=== PATIENT | female | born 1970 | race Caucasian/White ===

== ENCOUNTER 2018-09-22 14:16 | Emergency (ER) | payer OTHER ==
[2018-09-22] MEDS ORDERED: SODIUM CHLORIDE 0.9% 1,000 ML IV STA (14:36)
[2018-09-22] MEDS ORDERED: IPRATROPIUM-ALBUTEROL 3 ML NEB INHALATION STA (14:38)
[2018-09-22] MEDS ORDERED: ACETAMINOPHEN TAB 500 MG TAB PO STA (14:38)
--- NOTE | 2018-09-22 14:46 | ED ---
General Adult HPI - General Chief complaint: Upper Respiratory Infection Stated complaint: JIHAN,dizzy Time Seen by Provider: 09/22/18 14:27 Source: patient, RN notes reviewed, old records reviewed Mode of arrival: wheelchair Limitations: no limitations - History of Present Illness Initial comments: 47 old female patient with past medical history of asthma presents to ED with approximately 5 days of dry cough, general feeling of malaise. Patient reports that her family is sick with similar symptoms. Patient states that she has tried Mucinex at home with little improvement. Patient states that she has had some fevers and chills. Patient states that she has had some shortness of breath when coughing. Patient denies chest pain. Patient denies pleuritic chest pain. Patient denies abdominal pain. Patient denies other complaints. Systemic: Pt denies fatigue, myalgia, rash. Pt denies weakness, night sweats, weight loss. Neuro: Pt denies headache, visual disturbances, syncope or pre-syncope. HEENT: Pt denies ocular discharge or irritation, otalgia, rhinorrhea, pharyngitis or notable lymphadenopathy. Cardiopulmonary: Pt denies chest pain, heart palpitations, dyspnea on exertion. Abdominal/GI: Pt denies abdominal pain, n/v/d. : Pt denies dysuria, burning w/ urination, frequency/urgency. Denies new onset urinary or bowel incontinence. MSK: Pt denies myalgia, loss of strength or function in extremities. Neuro: Pt denies new onset weakness, paresthesias. - Related Data Previous Rx's Medication Instructions Recorded Acetaminophen Tab [Tylenol] 1,000 mg PO TID 5 Days tablet 09/22/18 Albuterol Inhaler [Ventolin Hfa 1 - 2 puff INHALATION Q4-6H PRN #1 09/22/18 Inhaler] inhaler Albuterol Nebulized [Ventolin 2.5 mg INHALATION Q4H PRN 10 Days 09/22/18 Nebulized] nebu Amoxicillin/Potassium Clav 1 each PO Q12HR #20 tab 09/22/18 [Augmentin 875-125 Tablet] Ibuprofen [Motrin] 600 mg PO Q6HR PRN #40 day 09/22/18 Allergies Allergy/AdvReac Type Severity Reaction Status Date / Time codeine Allergy Unknown Verified 09/22/18 14:25 tioconazole Allergy Unknown Verified 09/22/18 14:25 [From Monistat 1 (tioconazole)] Review of Systems ROS Statement: Those systems with pertinent positive or pertinent negative responses have been documented in the HPI. ROS Other: All systems not noted in ROS Statement are negative. Past Medical History Past Medical History: No Reported History History of Any Multi-Drug Resistant Organisms: None Reported Past Surgical History: Ablation, Tubal Ligation Past Psychological History: Anxiety Smoking Status: Current every day smoker Past Alcohol Use History: Rare Past Drug Use History: Marijuana General Exam - General Exam Comments Initial Comments: Constitutional: NAD, AOX3, Pt has pleasant affect. HEENT: NC/AT, trachea midline, neck supple, no lymphadenopathy. Posterior pharynx non erythematous, without exudates. External ears appear normal, without discharge. Mucous membranes moist. Eyes PERRLA, EOM intact. There is no scleral icterus. No pallor noted. Cardiopulmonary: RRR, no murmurs, rubs or gallops, no JVD noted. Wheezing noted in anterior and posterior ramsya. Wheezing resolved after breathing treatment. No peripheral edema. Abdominal exam: Abdomen soft and non-distended. Abdomen non-tender to palpation in all 4 quadrants. Bowel sounds active in LLQ. No hepatosplenomegaly. No ecchymosis Neuro: CN II-XII grossly intact. No nuchal rigidity. MSK: No posterior calf tenderness bilaterally, homans sign negative bilaterally. Posterior tibialis and radial pulse +2 bilaterally. Sensation intact in upper and lower extremities. Full active ROM in upper and lower extremities, 5/5 stregnth. Limitations: no limitations Course Vital Signs 09/22/18 09/22/18 09/22/18 14:21 15:02 15:13 Temperature 99.9 F H Pulse Rate 114 H 104 H 96 Respiratory 20 Rate Blood Pressure 126/31 O2 Sat by Pulse 95 Oximetry Medical Decision Making - Medical Decision Making 47 old female patient with past medical history of asthma presents to ED with approximately 5 days of dry cough, general feeling of malaise. Patient reports that her family is sick with similar symptoms. Patient states that she has tried Mucinex at home with little improvement. Patient states that she has had some fevers and chills. Patient states that she has had some shortness of breath when coughing. Patient denies chest pain. Patient denies pleuritic chest pain. Patient denies abdominal pain. Patient denies other complaints. Pt vss displayed mild tachycardia and mild fever of 99.9F. tachycardia resolved with fluid administration and antipyretic. Physical exam displayed mild wheezing in anterior and posterior lung ramsay, wheezing resolved after breathing treatment. No other acute pathology noted on physical exam. Laboratory investigations revealed mild cytosis of 10.7. D-dimer is negative. CMP revealed mild hyponatremia of 136. AST/ALT mildly elevated at 56 and 55. Troponin was negative. EKG displayed sinus tachycardia. Chest x-ray revealed right suprahilar area of consolidation. Patient to follow up for repeat films after pneumonia treatment to ensure no other pathology. Patient administered 1 g acetaminophen, 1 g ceftriaxone, 1 L normal saline in ED. Patient to be discharged with outpatient antibiotic Augmentin. Patient is on medications also refilled. Patient prescribed,/Motrin, to use to control fever as needed. Patient new to area, does not have PCP. Patient referred to [facility]. Stressed importance of follow-up, patient was understanding. Patient to have low threshold for return to ED. Patient was understanding. Patient to return to ED if new signs or symptoms develop or if condition worsens in any way. Case discussed in depth with Dr. Underwood. - Lab Data Result diagrams: 09/22/18 14:45 09/22/18 14:45 Lab Results 09/22/18 09/22/18 09/22/18 Range/Units 14:45 14:45 14:45 WBC 10.7 H (3.8-10.6) k/uL RBC 5.07 (3.80-5.40) m/uL Hgb 15.3 (11.4-16.0) gm/dL Hct 46.5 H (34.0-46.0) % MCV 91.8 (80.0-100.0) fL MCH 30.3 (25.0-35.0) pg MCHC 33.0 (31.0-37.0) g/dL RDW 13.1 (11.5-15.5) % Plt Count 172 (150-450) k/uL Neutrophils % 80 % Lymphocytes % 12 % Monocytes % 5 % Eosinophils % 1 % Basophils % 1 % Neutrophils # 8.6 H (1.3-7.7) k/uL Lymphocytes # 1.3 (1.0-4.8) k/uL Monocytes # 0.5 (0-1.0) k/uL Eosinophils # 0.1 (0-0.7) k/uL Basophils # 0.1 (0-0.2) k/uL D-Dimer (<0.60) mg/L FEU Sodium 136 L (137-145) mmol/L Potassium 3.8 (3.5-5.1) mmol/L Chloride 100 (98-107) mmol/L Carbon Dioxide 23 (22-30) mmol/L Anion Gap 13 mmol/L BUN 11 (7-17) mg/dL Creatinine 0.74 (0.52-1.04) mg/dL Est GFR (CKD-EPI)AfAm >90 (>60 ml/min/1.73 sqM) Est GFR (CKD-EPI)NonAf >90 (>60 ml/min/1.73 sqM) Glucose 114 H (74-99) mg/dL Plasma Lactic Acid Ric 1.5 (0.7-2.0) mmol/L Calcium 9.1 (8.4-10.2) mg/dL Total Bilirubin 0.5 (0.2-1.3) mg/dL AST 56 H (14-36) U/L ALT 55 H (9-52) U/L Alkaline Phosphatase 114 (38-126) U/L Troponin I (0.000-0.034) ng/mL Total Protein 7.6 (6.3-8.2) g/dL Albumin 4.5 (3.5-5.0) g/dL Amylase 39 (30-110) U/L Lipase 70 (23-300) U/L 09/22/18 09/22/18 Range/Units 14:45 14:45 WBC (3.8-10.6) k/uL RBC (3.80-5.40) m/uL Hgb (11.4-16.0) gm/dL Hct (34.0-46.0) % MCV (80.0-100.0) fL MCH (25.0-35.0) pg MCHC (31.0-37.0) g/dL RDW (11.5-15.5) % Plt Count (150-450) k/uL Neutrophils % % Lymphocytes % % Monocytes % % Eosinophils % % Basophils % % Neutrophils # (1.3-7.7) k/uL Lymphocytes # (1.0-4.8) k/uL Monocytes # (0-1.0) k/uL Eosinophils # (0-0.7) k/uL Basophils # (0-0.2) k/uL D-Dimer 0.44 (<0.60) mg/L FEU Sodium (137-145) mmol/L Potassium (3.5-5.1) mmol/L Chloride (98-107) mmol/L Carbon Dioxide (22-30) mmol/L Anion Gap mmol/L BUN (7-17) mg/dL Creatinine (0.52-1.04) mg/dL Est GFR (CKD-EPI)AfAm (>60 ml/min/1.73 sqM) Est GFR (CKD-EPI)NonAf (>60 ml/min/1.73 sqM) Glucose (74-99) mg/dL Plasma Lactic Acid Ric (0.7-2.0) mmol/L Calcium (8.4-10.2) mg/dL Total Bilirubin (0.2-1.3) mg/dL AST (14-36) U/L ALT (9-52) U/L Alkaline Phosphatase (38-126) U/L Troponin I <0.012 (0.000-0.034) ng/mL Total Protein (6.3-8.2) g/dL Albumin (3.5-5.0) g/dL Amylase (30-110) U/L Lipase (23-300) U/L Disposition Clinical Impression: Community acquired pneumonia Disposition: HOME SELF-CARE Condition: Stable Instructions (If sedation given, give patient instructions): Asthma (ED), Community Acquired Pneumonia (ED) Additional Instructions: Patient to adhere to previously discussed treatment plan and will take medication(s) as directed. Patient to follow up with PCP in 1-2 days. Patient to return to ED if symptoms do not improve. Prescriptions: Acetaminophen Tab [Tylenol] 1,000 mg PO TID 5 Days tablet Albuterol Inhaler [Ventolin Hfa Inhaler] 1 - 2 puff INHALATION Q4-6H PRN #1 inhaler PRN Reason: Cough Albuterol Nebulized [Ventolin Nebulized] 2.5 mg INHALATION Q4H PRN 10 Days nebu PRN Reason: Cough Amoxicillin/Potassium Clav [Augmentin 875-125 Tablet] 1 each PO Q12HR #20 tab Ibuprofen [Motrin] 600 mg PO Q6HR PRN #40 day PRN Reason: Pain Is patient prescribed a controlled substance at d/c from ED?: No Referrals: None,Stated [Primary Care Provider] - 1-2 days [facility] [[facility] - 1-2 days Time of Disposition: 15:49
[2018-09-22 15:14] LABS: Basophils # (A) 0.1 k/uL (0-0.2); Basophils % (A) 1 %; Eosinophils # (A) 0.1 k/uL (0-0.7); Eosinophils % (A) 1 %; HCT 46.5 % (34.0-46.0); HGB 15.3 gm/dL (11.4-16.0); Lymphocytes # (A) 1.3 k/uL (1.0-4.8); Lymphocytes % (A) 12 %; MCH 30.3 pg (25.0-35.0); MCV 91.8 fL (80.0-100.0); Monocytes # (A) 0.5 k/uL (0-1.0); Monocytes % (A) 5 %; Neutrophils # (A) 8.6 k/uL (1.3-7.7); Neutrophils % (A) 80 %; Platelet Count 172 k/uL (150-450); RBC 5.07 m/uL (3.80-5.40); RDW 13.1 % (11.5-15.5); WBC 10.7 k/uL (3.8-10.6)
[2018-09-22 15:20] LABS: ALT 55 U/L (9-52); AST 56 U/L (14-36); Albumin 4.5 g/dL (3.5-5.0); Alkaline Phosphatase 114 U/L (38-126); Amylase 39 U/L (30-110); Anion Gap 13 mmol/L; Blood Urea Nitrogen 11 mg/dL (7-17); Calcium 9.1 mg/dL (8.4-10.2); Carbon Dioxide 23 mmol/L (22-30); Chloride 100 mmol/L (98-107); Glucose 114 mg/dL (74-99); Lipase 70 U/L (23-300); Potassium 3.8 mmol/L (3.5-5.1); Sodium 136 mmol/L (137-145); Total Bilirubin 0.5 mg/dL (0.2-1.3); Total Protein 7.6 g/dL (6.3-8.2)
--- NOTE | 2018-09-22 15:37 | XR ---
EXAMINATION TYPE: XR chest 2V DATE OF EXAM: 09/22/2018 COMPARISON: NONE TECHNIQUE: PA and lateral views submitted. HISTORY: Cough and congestion. FINDINGS: There is an irregular right suprahilar area of density within the right upper lobe. Left lung clear. No pneumothorax or pleural effusion. No overt failure. Heart size normal. Spine. IMPRESSION: 1. Right suprahilar area of somewhat irregular consolidation favor pneumonia over neoplasm. Follow-up to resolution recommended to exclude neoplasm.
[2018-09-22] MEDS ORDERED: IBUPROFEN 800 MG TAB PO STA (16:27)
[2018-09-22 16:28] VITALS: BP 109/71; PULSE 99; RESP 18
[2018-09-22 17:23] VITALS: TEMP 99.2
--- NOTE | 2018-09-22 18:46 | ED ---
Medical Decision Making - Lab Data Result diagrams: 09/22/18 14:45 09/22/18 14:45 Lab Results 09/22/18 09/22/18 09/22/18 Range/Units 14:45 14:45 14:45 WBC 10.7 H (3.8-10.6) k/uL RBC 5.07 (3.80-5.40) m/uL Hgb 15.3 (11.4-16.0) gm/dL Hct 46.5 H (34.0-46.0) % MCV 91.8 (80.0-100.0) fL MCH 30.3 (25.0-35.0) pg MCHC 33.0 (31.0-37.0) g/dL RDW 13.1 (11.5-15.5) % Plt Count 172 (150-450) k/uL Neutrophils % 80 % Lymphocytes % 12 % Monocytes % 5 % Eosinophils % 1 % Basophils % 1 % Neutrophils # 8.6 H (1.3-7.7) k/uL Lymphocytes # 1.3 (1.0-4.8) k/uL Monocytes # 0.5 (0-1.0) k/uL Eosinophils # 0.1 (0-0.7) k/uL Basophils # 0.1 (0-0.2) k/uL D-Dimer (<0.60) mg/L FEU Sodium 136 L (137-145) mmol/L Potassium 3.8 (3.5-5.1) mmol/L Chloride 100 (98-107) mmol/L Carbon Dioxide 23 (22-30) mmol/L Anion Gap 13 mmol/L BUN 11 (7-17) mg/dL Creatinine 0.74 (0.52-1.04) mg/dL Est GFR (CKD-EPI)AfAm >90 (>60 ml/min/1.73 sqM) Est GFR (CKD-EPI)NonAf >90 (>60 ml/min/1.73 sqM) Glucose 114 H (74-99) mg/dL Plasma Lactic Acid Ric 1.5 (0.7-2.0) mmol/L Calcium 9.1 (8.4-10.2) mg/dL Total Bilirubin 0.5 (0.2-1.3) mg/dL AST 56 H (14-36) U/L ALT 55 H (9-52) U/L Alkaline Phosphatase 114 (38-126) U/L Troponin I (0.000-0.034) ng/mL Total Protein 7.6 (6.3-8.2) g/dL Albumin 4.5 (3.5-5.0) g/dL Amylase 39 (30-110) U/L Lipase 70 (23-300) U/L 09/22/18 09/22/18 Range/Units 14:45 14:45 WBC (3.8-10.6) k/uL RBC (3.80-5.40) m/uL Hgb (11.4-16.0) gm/dL Hct (34.0-46.0) % MCV (80.0-100.0) fL MCH (25.0-35.0) pg MCHC (31.0-37.0) g/dL RDW (11.5-15.5) % Plt Count (150-450) k/uL Neutrophils % % Lymphocytes % % Monocytes % % Eosinophils % % Basophils % % Neutrophils # (1.3-7.7) k/uL Lymphocytes # (1.0-4.8) k/uL Monocytes # (0-1.0) k/uL Eosinophils # (0-0.7) k/uL Basophils # (0-0.2) k/uL D-Dimer 0.44 (<0.60) mg/L FEU Sodium (137-145) mmol/L Potassium (3.5-5.1) mmol/L Chloride (98-107) mmol/L Carbon Dioxide (22-30) mmol/L Anion Gap mmol/L BUN (7-17) mg/dL Creatinine (0.52-1.04) mg/dL Est GFR (CKD-EPI)AfAm (>60 ml/min/1.73 sqM) Est GFR (CKD-EPI)NonAf (>60 ml/min/1.73 sqM) Glucose (74-99) mg/dL Plasma Lactic Acid Ric (0.7-2.0) mmol/L Calcium (8.4-10.2) mg/dL Total Bilirubin (0.2-1.3) mg/dL AST (14-36) U/L ALT (9-52) U/L Alkaline Phosphatase (38-126) U/L Troponin I <0.012 (0.000-0.034) ng/mL Total Protein (6.3-8.2) g/dL Albumin (3.5-5.0) g/dL Amylase (30-110) U/L Lipase (23-300) U/L - EKG Data -: EKG Interpreted by Me (and Dr. Underwood ) EKG Comments: Ventricular rate 114, MI interval 1:30, QRS 80, QT/QTC 3:30 6465. Sinus tachycardia. No concern for acute ischemia. Disposition Clinical Impression: Community acquired pneumonia Disposition: HOME SELF-CARE Condition: Stable Instructions (If sedation given, give patient instructions): Asthma (ED), Community Acquired Pneumonia (ED) Additional Instructions: Patient to adhere to previously discussed treatment plan and will take medication(s) as directed. Patient to follow up with PCP in 1-2 days. Patient to return to ED if symptoms do not improve. Prescriptions: Acetaminophen Tab [Tylenol] 1,000 mg PO TID 5 Days tablet Albuterol Inhaler [Ventolin Hfa Inhaler] 1 - 2 puff INHALATION Q4-6H PRN #1 inhaler PRN Reason: Cough Albuterol Nebulized [Ventolin Nebulized] 2.5 mg INHALATION Q4H PRN 10 Days nebu PRN Reason: Cough Amoxicillin/Potassium Clav [Augmentin 875-125 Tablet] 1 each PO Q12HR #20 tab Ibuprofen [Motrin] 600 mg PO Q6HR PRN #40 day PRN Reason: Pain Is patient prescribed a controlled substance at d/c from ED?: No Referrals: None,Stated [Primary Care Provider] - [facility]2 days
== END 2018-09-22 17:25 | disposition home or self-care (01) ==
LOC: EC 14:16
DX: J18.9 Pneumonia, unspecified organism (principal); R00.0 Tachycardia, unspecified; E78.1 Pure hyperglyceridemia; R74.0 Nonspecific elevation of levels of transaminase and lactic acid dehydrogenase [LDH]; F17.200 Nicotine dependence, unspecified, uncomplicated; Z87.09 Personal history of other diseases of the respiratory system; Z88.5 Allergy status to narcotic agent; Z88.8 Allergy status to other drugs, medicaments and biological substances
CPT/HCPCS: 36415; 94640; 93005; 85379; 80053; 82150; 83605; 83690; 84484; 85025; 87040; 71046; 99285; 96365; 96361; J0696

== ENCOUNTER 2018-09-24 00:30 | Inpatient (IN) | payer OTHER ==
[2018-09-24] MEDS ORDERED: SODIUM CHLORIDE 0.9% 1,000 ML IV STA (00:51)
[2018-09-24] MEDS ORDERED: methylPREDNISolone SOD SUCCI 125 MG/2 ML VIAL IV STA (00:51)
[2018-09-24] MEDS ORDERED: ALBUTEROL NEBULIZED 2.5 MG/3 ML INHALATION STA (00:52)
[2018-09-24] MEDS ORDERED: IPRATROPIUM 0.5 MG/2.5 ML NEBU INHALATION STA (00:52)
--- NOTE | 2018-09-24 00:55 | ED ---
SOB HPI - General Chief Complaint: Shortness of Breath Stated Complaint: URI Time Seen by Provider: 09/24/18 00:40 Source: patient Mode of arrival: wheelchair Limitations: no limitations - History of Present Illness Initial Comments: 47-year-old female patient presents to the emergency department today for evaluation of shortness of breath and weakness. Patient states that she has been sick since Wednesday with upper respiratory symptoms including cough, wheezing, nasal congestion. Patient states she does have sore throat with this as well. Patient states she was seen and evaluated here in the emergency department yesterday was diagnosed with pneumonia and discharged home. Patient states she cannot afford her prescriptions and therefore was unable to start treatment. Patient states she feels her symptoms are worsening. States she has been very wheezy. States she gets very short of breath with and without activity. States she has had fever and chills. Has not taken her temperature. Patient denies any recent rash, abdominal pain, diarrhea, constipation, back pain, numbness, tingling, dizziness, hematuria, dysuria, urinary urgency, urinary frequency, headache, visual changes, or any other complaints. - Related Data Previous Rx's Medication Instructions Recorded Acetaminophen Tab [Tylenol] 1,000 mg PO TID 5 Days tablet 09/22/18 Albuterol Inhaler [Ventolin Hfa 1 - 2 puff INHALATION Q4-6H PRN #1 09/22/18 Inhaler] inhaler Albuterol Nebulized [Ventolin 2.5 mg INHALATION Q4H PRN 10 Days 09/22/18 Nebulized] nebu Amoxicillin/Potassium Clav 1 each PO Q12HR #20 tab 09/22/18 [Augmentin 875-125 Tablet] Ibuprofen [Motrin] 600 mg PO Q6HR PRN #40 day 09/22/18 Allergies Allergy/AdvReac Type Severity Reaction Status Date / Time codeine Allergy Unknown Verified 09/22/18 16:06 tioconazole Allergy Unknown Verified 09/22/18 16:06 [From Monistat 1 (tioconazole)] Review of Systems ROS Statement: Those systems with pertinent positive or pertinent negative responses have been documented in the HPI. ROS Other: All systems not noted in ROS Statement are negative. Past Medical History Past Medical History: No Reported History History of Any Multi-Drug Resistant Organisms: None Reported Past Surgical History: Ablation, Tubal Ligation Past Psychological History: Anxiety Smoking Status: Current every day smoker Past Alcohol Use History: Rare Past Drug Use History: Marijuana General Exam Limitations: no limitations General appearance: alert, in no apparent distress, other (This is a well- developed, well-nourished adult female patient in no acute distress. Vital signs upon presentation are temperature 98.9F, pulse 103, respirations 20, blood pressure 124/82, pulse ox 93% on room air.) Eye exam: Present: normal appearance, PERRL, EOMI. Absent: scleral icterus, conjunctival injection, periorbital swelling ENT exam: Present: mucous membranes moist, TM's normal bilaterally. Absent: normal exam, normal oropharynx (Pharyngeal erythema) Neck exam: Present: normal inspection. Absent: tenderness, meningismus, lymphadenopathy Respiratory exam: Present: wheezes (Mild expiratory wheezing to all posterior lung ramsay), accessory muscle use, other (Tachypnea). Absent: normal lung sounds bilaterally, respiratory distress, rales, rhonchi, stridor Cardiovascular Exam: Present: normal rhythm, tachycardia, normal heart sounds. Absent: systolic murmur, diastolic murmur, rubs, gallop, clicks GI/Abdominal exam: Present: soft, normal bowel sounds. Absent: distended, tenderness, guarding, rebound, rigid Neurological exam: Present: alert, oriented X3, CN II-XII intact Psychiatric exam: Present: normal affect, normal mood Skin exam: Present: warm, dry, intact, normal color. Absent: rash Course Vital Signs 09/24/18 09/24/18 09/24/18 00:34 01:25 01:48 Temperature 98.9 F Pulse Rate 103 H 102 H 112 H Respiratory 20 18 22 Rate Blood Pressure 124/82 120/84 O2 Sat by Pulse 93 L 93 L Oximetry Medical Decision Making - Medical Decision Making 47 year-old female patient presented to the emergency department today for complaints of shortness of breath and cough. Patient was diagnosed with pneumonia yesterday but was unable to fill her prescriptions she cannot afford them. Upon arrival patient is hypoxic at 93% on room air. She is obviously short of breath and tachypneic. She did have diffuse expiratory wheezing in the posterior lung ramsay. X-ray did show perihilar and lower lobe pneumonia. Given vital signs and x-ray findings we will admit to the hospital for IV antibiotics and symptom management. We'll also administer IV steroids and bronchodilators for possibility of COPD as patient is a smoker. - Lab Data Result diagrams: 09/24/18 01:10 09/24/18 01:10 Lab Results 09/24/18 09/24/18 09/24/18 Range/Units 01:10 01:10 01:10 WBC 10.4 (3.8-10.6) k/uL RBC 4.57 (3.80-5.40) m/uL Hgb 14.4 (11.4-16.0) gm/dL Hct 41.9 (34.0-46.0) % MCV 91.7 (80.0-100.0) fL MCH 31.5 (25.0-35.0) pg MCHC 34.4 (31.0-37.0) g/dL RDW 13.1 (11.5-15.5) % Plt Count 170 (150-450) k/uL Neutrophils % 73 % Lymphocytes % 19 % Monocytes % 5 % Eosinophils % 0 % Basophils % 1 % Neutrophils # 7.6 (1.3-7.7) k/uL Lymphocytes # 2.0 (1.0-4.8) k/uL Monocytes # 0.5 (0-1.0) k/uL Eosinophils # 0.0 (0-0.7) k/uL Basophils # 0.1 (0-0.2) k/uL Sodium 137 (137-145) mmol/L Potassium 4.1 (3.5-5.1) mmol/L Chloride 102 (98-107) mmol/L Carbon Dioxide 25 (22-30) mmol/L Anion Gap 10 mmol/L BUN 13 (7-17) mg/dL Creatinine 0.55 (0.52-1.04) mg/dL Est GFR (CKD-EPI)AfAm >90 (>60 ml/min/1.73 sqM) Est GFR (CKD-EPI)NonAf >90 (>60 ml/min/1.73 sqM) Glucose 107 H (74-99) mg/dL Plasma Lactic Acid Ric 1.1 (0.7-2.0) mmol/L Calcium 8.7 (8.4-10.2) mg/dL Total Bilirubin 0.8 (0.2-1.3) mg/dL AST 64 H (14-36) U/L ALT 43 (9-52) U/L Alkaline Phosphatase 78 (38-126) U/L Total Protein 7.6 (6.3-8.2) g/dL Albumin 4.1 (3.5-5.0) g/dL - EKG Data -: EKG Interpreted by Me EKG Comments: EKG obtained at 0103 shows sinus tachycardia with a ventricular rate of 104, IA interval 142, QRS duration 84, QT 348, QTC 457. No evidence of ST elevation or depression. - Radiology Data Radiology results: report reviewed, image reviewed Two-view x-ray of the chest is obtained. Report was reviewed in its entirety. Impression by Dr. Irving shows increased patchy perihilar and lower lung opacities may represent pulmonary edema versus infectious/inflammatory process. Disposition Clinical Impression: Pneumonia, Hypoxia Disposition: ADMITTED IP TO THIS [facility] Condition: Serious Decision to Admit Reason: Admit from EC Decision Date: 09/24/18 Decision Time: 02:52
[2018-09-24 01:46] LABS: Basophils # (A) 0.1 k/uL (0-0.2); Basophils % (A) 1 %; Eosinophils % (A) 0 %; HCT 41.9 % (34.0-46.0); HGB 14.4 gm/dL (11.4-16.0); Lymphocytes % (A) 19 %; MCH 31.5 pg (25.0-35.0); MCHC 34.4 g/dL (31.0-37.0); MCV 91.7 fL (80.0-100.0); Mean Platelet Volume 8.9; Monocytes # (A) 0.5 k/uL (0-1.0); Monocytes % (A) 5 %; Neutrophils # (A) 7.6 k/uL (1.3-7.7); Neutrophils % (A) 73 %; Platelet Count 170 k/uL (150-450); RBC 4.57 m/uL (3.80-5.40); RDW 13.1 % (11.5-15.5); WBC 10.4 k/uL (3.8-10.6)
[2018-09-24 02:16] LABS: Anion Gap 10 mmol/L; Blood Urea Nitrogen 13 mg/dL (7-17); Calcium 8.7 mg/dL (8.4-10.2); Carbon Dioxide 25 mmol/L (22-30); Chloride 102 mmol/L (98-107); Glucose 107 mg/dL (74-99); Sodium 137 mmol/L (137-145)
--- NOTE | 2018-09-24 02:20 | XR ---
EXAM: XR Chest, 2 Views CLINICAL HISTORY: ITS.REASON XR Reason: difficulty breathing TECHNIQUE: Frontal and lateral views of the chest. COMPARISON: Chest radiograph on 09/22/2018 FINDINGS: Hardware: None. Lungs/pleura: Patchy perihilar and lower lobe opacities. No pleural effusion or pneumothorax. Heart/mediastinum: Normal. No cardiomegaly. Soft tissues: Unremarkable. Bones: No acute fracture. Degenerative changes of the acromioclavicular joints and spine. Upper abdomen: Normal. IMPRESSION: Increased patchy perihilar and lower lung opacities may represent pulmonary edema versus infectious/inflammatory process.
[2018-09-24] MEDS ORDERED: KETOROLAC 30 MG/ML 1 ML VIAL IVP STA (02:33)
[2018-09-24 02:38] LABS: ALT 43 U/L (9-52); AST 64 U/L (14-36); Albumin 4.1 g/dL (3.5-5.0); Potassium 4.1 mmol/L (3.5-5.1); Total Bilirubin 0.8 mg/dL (0.2-1.3); Total Protein 7.6 g/dL (6.3-8.2)
[2018-09-24 02:39] LABS: Alkaline Phosphatase 78 U/L (38-126)
[2018-09-24] MEDS ORDERED: PNEUMONIA PROTOCOL UTILIZED 1 EACH MISC PO PRN (02:49)
[2018-09-24] MEDS ORDERED: AZITHROMYCIN 500 MG in SODIUM CHLORIDE 0.9% 250 ML IVPB STA (02:49)
[2018-09-24] MEDS ORDERED: IPRATROPIUM-ALBUTEROL 3 ML NEB INHALATION PRN (02:49)
[2018-09-24] MEDS ORDERED: AZITHROMYCIN 500 MG in SODIUM CHLORIDE 0.9% 250 ML IVPB ONE (05:00)
[2018-09-24] MEDS: KETOROLAC 30 MG/ML 1 ML VIAL IVP PRN ×2 (06:16→10:21)
[2018-09-24] MEDS: methylPREDNISolone SOD SUCCI 125 MG/2 ML VIAL IV SCH ×2 (06:20→12:06)
[2018-09-24] MEDS: IPRATROPIUM-ALBUTEROL 3 ML NEB INHALATION SCH ×4 (08:10→21:04)
[2018-09-24] MEDS ORDERED: ACETAMINOPHEN TAB 325 MG TAB PO PRN (15:06)
--- NOTE | 2018-09-24 15:59 | P.HPIM ---
History of Present Illness Chief Complaint: Shortness of breath This is a 47-year-old female who comes into the ER for shortness of breath and weakness. Patient says that she's been weak and sick for the past 4 days with cough wheezing shortness of breath and nasal congestion. She came into the ER the day before the present admission and she was diagnosed with pneumonia she was discharged home on antibiotics but she could not afford and so she did not refill the medications. He said that she's been trying to control the fever with Tylenol and Motrin but she was getting worse and worse so she came into the ER for further urology management. She says that she was having worsening shortness of breath and worsening cough. She continued to have fevers and chills. She otherwise does not complain of any chest pain or racing heart, no abdominal pain, nausea and vomiting, or diarrhea constipation, no tingling numbness of any of the extremities, no itch no rash. ER course-water show temperature 98.9 pulse 103 respiration 20 blood pressure satting 93%. Labwork was done which showed WBC 10.4 hemoglobin 14.4 platelets 170 sodium 137 potassium 4.1 BU and 13 creatinine 0.55 GFR more than 90 glucose 107 lactic acid is 1.1 [address] showed no [address]-T wave changes. Chest x -ray done showed increased patchy perihilar and lower lung opacities. Patient was started on Rocephin and Zithromax, IV fluids and admitted to the hospitalist service for further management Review of Systems All systems: negative Past Medical History Past Medical History: Asthma, Pneumonia History of Any Multi-Drug Resistant Organisms: None Reported Past Surgical History: Ablation, Tubal Ligation Past Anesthesia/Blood Transfusion Reactions: No Reported Reaction Past Psychological History: Anxiety, PTSD Smoking Status: Current every day smoker Past Alcohol Use History: Rare Past Drug Use History: Marijuana - Past Family History Mother Family Medical History: Cancer, COPD Additional Family Medical History / Comment(s): breast ca at age 28. Father Family Medical History: Hypertension Medications and Allergies Home Medications Medication Instructions Recorded Confirmed Type Acetaminophen/Diphenhydramine 2 tab PO HS PRN 09/24/18 09/24/18 History [Tylenol PM 500-25mg] Ibuprofen [Motrin Ib] 600 mg PO Q6H PRN 09/24/18 09/24/18 History Allergies Allergy/AdvReac Type Severity Reaction Status Date / Time codeine Allergy Unknown Verified 09/24/18 08:12 tioconazole Allergy Unknown Verified 09/24/18 08:12 [From Monistat 1 (tioconazole)] Physical Exam Vitals: Vital Signs Temp Pulse Pulse Resp BP BP Pulse Ox 09/24/18 13:45 99.1 F 103 H 20 133/81 95 09/24/18 12:42 96 09/24/18 12:41 92 09/24/18 12:35 96 09/24/18 08:22 92 20 09/24/18 08:10 87 18 95 09/24/18 06:00 98.6 F 104 H 20 145/80 93 L 09/24/18 04:01 99.5 F 113 H 24 128/87 94 L 09/24/18 03:23 113 H 22 123/70 93 L 09/24/18 01:48 112 H 22 09/24/18 01:25 102 H 18 120/84 93 L 09/24/18 00:34 98.9 F 103 H 20 124/82 93 L Intake and Output 09/24/18 09/24/18 09/24/18 06:59 14:59 22:59 Intake Total 200 Balance 200 Intake: Oral 200 Other: # Voids 1 3 Weight 111.5 kg On exam, alert and oriented x3. HEENT: Conjunctivae normal. eyes normal. NECK: No JVD. No thyroid enlargement. No LNs CARDIOVASCULAR: S1, S2 muffled. No murmur RESPIRATION: She has crackles at the bilateral bases ABDOMEN: Soft, nontender . No guarding. no masses palpable. No ascites, No hepatosplenomegaly.Bowel sounds heard. LEGS: No edema. no swelling NERVOUS SYSTEM: Cranial N 2-12 grossly normal. Moves all 4 limbs. No focal deficits. No sensory deficit. No signs of cerebellar dysfucntion. Skin: no ulcer no rash Joints: No active swelling. No inflammation. Lymphatic system. No LN neck axilla or groin. Results CBC & Chem 7: 09/24/18 01:10 09/24/18 01:10 Labs: Abnormal Lab Results - Last 24 Hours (Table) 09/24/18 Range/Units 01:10 Glucose 107 H (74-99) mg/dL AST 64 H (14-36) U/L Thrombosis Risk Factor Assmnt - Choose All That Apply Any of the Below Risk Factors Present?: Yes Each Factor Represents 1 point: Age 41-60 years, Obesity (BMI >25), Serious lung disease incl. pneumonia (< 1month) Other Risk Factors: No Other congenital or acquired thrombophilia - If yes, enter type in comment: No Thrombosis Risk Factor Assessment Total Risk Factor Score: 3 Thrombosis Risk Factor Assessment Level: Moderate Risk Assessment and Plan Assessment: Assessment - Community-acquired pneumonia - Cluster headaches - Obesity - History of asthma as per patient Plan - We'll admit the patient to MedSurg - We'll continue Rocephin and Zithromax - We'll continue IV fluids - Patient was pretty course. We'll continue the breathing treatments - We'll give her Solu-Medrol - She also says that she's having cluster headaches and she went blurry in her left eye for a few seconds and the vision is back to normal. We'll give her Tylenol. We'll also do a CT hEAD - DVT and GI prophylaxis - We'll order for lab work in the morning - Expected length of stay more than 2 midnights - Patient is full code
--- NOTE | 2018-09-24 17:07 | CT ---
EXAMINATION TYPE: CT brain wo con DATE OF EXAM: 09/24/2018 COMPARISON: NONE HISTORY: Headache and blurry vision. CT DLP: 1038.2 mGycm. Automated Exposure Control for Dose Reduction was Utilized. TECHNIQUE: CT scan of the head is performed without contrast. FINDINGS: There is no acute intracranial hemorrhage, mass effect, or midline shift identified. Ther e are few questionable patchy subcortical areas of hypoattenuation such as within the precentral gyru s of the right frontal lobe on series 5 image 37. The ventricles and sulci are within normal limits i n size. The globes are intact. There is moderate mucosal thickening of the frontal sinuses with insp issated debris and layering air-fluid levels. Mild mucosal thickening is also noted within the spheno id sinus. Remaining paranasal sinuses and mastoid air cells are well aerated. IMPRESSION: 1. No acute intracranial hemorrhage, mass effect, or midline shift is seen. 2. Inspissated secretions within the frontal sinus containing air-fluid levels, overall moderate degr ee with mild mucosal thickening of the sphenoid sinuses. 3. Few questionable hypoattenuated subcortical foci that could be further evaluated with MRI. Conside rations would be for sequela of chronic microangiopathy or demyelinating disease.
[2018-09-24] MEDS: methylPREDNISolone SOD SUCCI 40 MG/ML 1 ML VIAL IV SCH (20:31)
[2018-09-24] MEDS ORDERED: LORazepam 0.5 MG TAB PO ONE (22:06)
[2018-09-25] MEDS: methylPREDNISolone SOD SUCCI 40 MG/ML 1 ML VIAL IV SCH (03:04)
[2018-09-25] MEDS: IPRATROPIUM-ALBUTEROL 3 ML NEB INHALATION SCH ×4 (08:16→19:55)
[2018-09-25] MEDS ORDERED: AZITHROMYCIN 500 MG TAB PO SCH (09:00)
[2018-09-25] MEDS ORDERED: diphenhydrAMINE 50 MG/ML 1 ML VIAL IVP STA (10:44)
[2018-09-25] MEDS ORDERED: DEXAMETHASONE SOD PHOSPHATE 10 MG/ML 1 ML VIAL IV STA (10:44)
[2018-09-25] MEDS: KETOROLAC 30 MG/ML 1 ML VIAL IVP PRN (11:08)
[2018-09-25] MEDS: LEVOFLOXACIN 750MG-D5W PMX 750 MG in DEXTROSE/WATER 1 150ML.BAG IVPB SCH (11:44)
[2018-09-25] MEDS ORDERED: guaiFENesin-DM 600/30MG 1 EACH TAB.ER.12H PO PRN (12:40)
--- NOTE | 2018-09-25 12:43 | P.PN ---
Subjective Patient complaining of headache behind her left eye. Says that her cough and shortness of breath is better Objective - Vital Signs Vital signs: Vital Signs Temp 99.2 F 09/25/18 05:59 Pulse 93 09/25/18 12:11 Resp 17 09/25/18 05:59 BP 126/73 09/25/18 05:59 Pulse Ox 95 09/25/18 08:17 Intake & Output 09/24/18 09/25/18 09/25/18 18:59 06:59 18:59 Other: # Voids 3 2 # Bowel Movements 0 - Exam On exam, alert and oriented x3. HEENT: Conjunctivae normal. eyes normal. NECK: No JVD. No thyroid enlargement. No LNs CARDIOVASCULAR: S1, S2 muffled. No murmur RESPIRATION: Patient is having wheezing bilaterally ABDOMEN: Soft, nontender . No guarding. no masses palpable. No ascites, No hepatosplenomegaly.Bowel sounds heard. LEGS: No edema. no swelling NERVOUS SYSTEM: Cranial N 2-12 grossly normal. Moves all 4 limbs. No focal deficits. No sensory deficit. No signs of cerebellar dysfucntion. Skin: no ulcer no rash Joints: No active swelling. No inflammation. Lymphatic system. No LN neck axilla or groin. - Labs CBC & Chem 7: 09/24/18 01:10 09/24/18 01:10 Labs: Microbiology - Last 24 Hours (Table) 09/24/18 01:00 Blood Culture - Preliminary Blood No Growth after 24 hours 09/24/18 03:49 Blood Culture - Preliminary Blood No Growth after 24 hours 09/24/18 01:10 Blood Culture - Preliminary Blood No Growth after 24 hours Assessment and Plan Assessment: Assessment - Community-acquired pneumonia - Cluster headaches - Obesity - History of asthma as per patient Plan - We'll admit the patient to MedSurg - We'll continue Rocephin and Zithromax - We'll continue IV fluids - We'll give her the combination of Decadron plus Toradol plus Benadryl and see if it helpS with her headache - She is then to back to Levaquin anticipating discharge - DC steroids and put on Medrol Dosepak - If the patient's headache is better and she is able to walk without been short of breath, patient will possibly discharged Time with Patient: Greater than 30
--- NOTE | 2018-09-25 17:58 | XR ---
EXAMINATION TYPE: XR chest 2V DATE OF EXAM: 09/25/2018 COMPARISON: 09/24/2018 INDICATION: Pneumonia TECHNIQUE: Frontal and lateral views of the chest are obtained. FINDINGS: The heart size is normal. The pulmonary vasculature is normal. Patchy infiltrates are present bilaterally. These are worsening from comparison. Correlate for bilate ral pneumonia. Developing ARDS should be considered.. IMPRESSION: 1. Increasing bilateral lung infiltrates. Correlate for pneumonia and atelectasis. Findings are worse sonja.
[2018-09-25] MEDS: BUTALB/APAP/CAFF 50-325-40MG TAB PO PRN ×2 (20:07→23:25)
[2018-09-26] MEDS: BUTALB/APAP/CAFF 50-325-40MG TAB PO PRN ×3 (05:43→19:54)
[2018-09-26] MEDS: IPRATROPIUM-ALBUTEROL 3 ML NEB INHALATION SCH ×4 (08:01→19:57)
[2018-09-26] MEDS ORDERED: methylPREDNISolone 4 MG TAB TAPER PO SCH (09:00)
[2018-09-26 09:31] LABS: HCT 38.5 % (34.0-46.0); HGB 12.5 gm/dL (11.4-16.0); MCH 30.3 pg (25.0-35.0); MCHC 32.4 g/dL (31.0-37.0); MCV 93.5 fL (80.0-100.0); Mean Platelet Volume 9.3; Platelet Count 194 k/uL (150-450); RBC 4.11 m/uL (3.80-5.40); RDW 13.3 % (11.5-15.5); WBC 21.3 k/uL (3.8-10.6)
[2018-09-26 09:50] LABS: Anion Gap 9 mmol/L; Blood Urea Nitrogen 14 mg/dL (7-17); Calcium 9.1 mg/dL (8.4-10.2); Carbon Dioxide 26 mmol/L (22-30); Chloride 105 mmol/L (98-107); Glucose 151 mg/dL (74-99); Potassium 3.3 mmol/L (3.5-5.1); Sodium 140 mmol/L (137-145)
[2018-09-26] MEDS: LEVOFLOXACIN 750MG-D5W PMX 750 MG in DEXTROSE/WATER 1 150ML.BAG IVPB SCH (10:17)
[2018-09-26] MEDS ORDERED: Potassium Replacement Protocol 1 EACH MISC MISCELLANE PRN (11:01)
[2018-09-26] MEDS: POTASSIUM CHLORIDE ER 20 MEQ TAB.ER PO SCH ×2 (11:26→12:21)
[2018-09-26] MEDS ORDERED: POTASSIUM CHLORIDE ER 20 MEQ TAB.ER PO STA (12:47)
--- NOTE | 2018-09-26 13:54 | P.PN ---
Subjective This is a pleasant 47 years old female with past medical history of asthma, status post tubal ligation and ablation. Presents because of dyspnea. Patient was placed on Levaquin since her admission. However her chest x-ray showing worsening bilateral pneumonia. Ceftriaxone was added and called for pulmonary consult and infectious disease consult for further evaluation. Patient is still complaining of from dyspnea although she uses some of her accessory muscles and she can talks without difficulty. Patient denies chest pain. She has cough and worsening white phlegm. Sputum culture was sent done showing gram -positive cocci. Discontinue Toradol. Patient also was complaining of from pain around her left eye associated with blurred vision couple days ago but her vision is not blurry anymore. She had a CAT scan of the brain showing possible demyelinating disease versus inflammatory changes. Carotid duplex was ordered and underwent consult solar sales ambassador. Review of systems CONSTITUTIONAL: No fever, no malaise, no fatigue. HEENT: No recent visual problems or hearing problems. Denied any sore throat. CARDIOVASCULAR: No orthopnea, PND, no palpitations, no syncope. PULMONARY: No shortness of breath, no cough, no hemoptysis. GASTROINTESTINAL: No diarrhea, no nausea, no vomiting, no abdominal pain. Normoactive bowel sounds. NEUROLOGICAL: No headaches, no weakness, no numbness. HEMATOLOGICAL: Denies any bleeding or petechiae. GENITOURINARY: Denies any burning micturition, frequency, or urgency. MUSCULOSKELETAL/RHEUMATOLOGICAL: Denies any joint pain, swelling, or any muscle pain. ENDOCRINE: Denies any polyuria or polydipsia. Medications: Tylenol, furosemide, albuterol, Mucinex, Toradol, levofloxacin, methylprednisolone, ceftriaxone. Objective - Vital Signs Vital signs: Vital Signs Temp 97.3 F L 09/26/18 06:04 Pulse 94 09/26/18 11:49 Resp 18 09/26/18 06:04 BP 136/84 09/26/18 06:04 Pulse Ox 94 L 09/26/18 11:39 Intake & Output 09/25/18 09/26/18 09/26/18 18:59 06:59 18:59 Intake Total 200 Balance 200 Intake: Oral 200 Other: # Voids 2 1 - Exam GENERAL: The patient is alert and oriented x3, not in any acute distress. Well developed, well nourished. HEENT: Pupils are round and equally reacting to light. EOMI. No scleral icterus. No conjunctival pallor. Normocephalic, atraumatic. No pharyngeal erythema. No thyromegaly. CARDIOVASCULAR: S1 and S2 present. No murmurs, rubs, or gallops. -PULMONARY: Chest is clear to auscultation, bilateral wheezing and coarse crepitation ABDOMEN: Soft, nontender, nondistended, normoactive bowel sounds. No palpable organomegaly. MUSCULOSKELETAL: No joint swelling or deformity. EXTREMITIES: No cyanosis, clubbing, or pedal edema. NEUROLOGICAL: Gross neurological examination did not reveal any focal deficits. SKIN: No rashes. - Labs CBC & Chem 7: 09/26/18 08:38 09/26/18 08:38 Labs: Abnormal Lab Results - Last 24 Hours (Table) 09/26/18 09/26/18 Range/Units 08:38 08:38 WBC 21.3 H (3.8-10.6) k/uL Potassium 3.3 L (3.5-5.1) mmol/L Glucose 151 H (74-99) mg/dL Microbiology - Last 24 Hours (Table) 09/24/18 01:00 Blood Culture - Preliminary Blood No Growth after 48 hours 09/24/18 03:49 Blood Culture - Preliminary Blood No Growth after 48 hours 09/25/18 08:18 Gram Stain - Preliminary Sputum 09/24/18 01:10 Blood Culture - Preliminary Blood No Growth after 48 hours Assessment and Plan Assessment: Bilateral pneumonia Pain behind left eye, with brief periods of blurred vision. Frontal sinusitis Hypoattenuated subcortical foci of the brain History of asthma. Obesity Plan: This is a pleasant 47 years old female who presents because of bilateral pneumonia and left eye pain. Continue with antibiotics. Continue with steroids. Call infectious disease and pulmonary team consult. Surgical consult solar sales ambassador to evaluate eye pain. Continue with pain management. Continue with present treatment and oxygen.Labs and medication were reviewed.. Continue same treatment. Continue with symptomatic treatment. Resume home medication. Monitor lytes and vitals. DVT and GI prophylaxis. Further recommendations of the clinical course of the patient DVT prophylaxis: Subcutaneous heparin GI Prophylaxis: Pepcid PT/OT: Pending Prognosis is guarded
[2018-09-26] MEDS: FAMOTIDINE 20 MG/2 ML VIAL IV SCH ×2 (14:11→19:53)
[2018-09-26] MEDS: HEPARIN SODIUM,PORCINE 5,000 UNIT/ML 1 ML VIAL SQ SCH ×2 (14:11→19:54)
--- NOTE | 2018-09-26 15:00 | US ---
EXAMINATION TYPE: US carotid duplex BILAT DATE OF EXAM: 09/26/2018 COMPARISON: NONE CLINICAL HISTORY: pain around left eye with blurred vission at time. EXAM MEASUREMENTS: RIGHT: Peak Systolic Velocity (PSV) cm/sec ----- Right CCA: 96.4 ----- Right ICA: 76.9 ----- Right ECA: 101.2 ICA/CCA ratio: 0.8 RIGHT: End Diastole cm/sec ----- Right CCA: 17.2 ----- Right ICA: 22.8 ----- Right ECA: 12.8 LEFT: Peak Systolic Velocity (PSV) cm/sec ----- Left CCA: 109.6 ----- Left ICA: 129.3 ----- Left ECA: 131.3 ICA/CCA ratio: 1.2 LEFT: End Diastole cm/sec ----- Left CCA: 20.2 ----- Left ICA: 26.8 ----- Left ECA: 20.9 VERTEBRALS (direction of flow): Right Vertebral: Antegrade Left Vertebral: Antegrade Rhythm: Normal Elevated velocities Left Prox. ICA and Left ECA Technically challenging due to body habitus and difficulty breathing due to pneumonia IMPRESSION: Moderate narrowing left internal carotid artery estimated between 50 and 69%. Criteria for Assigning % of Stenosis / Diameter reduction (Estimation based on the indirect measurements of the internal carotid artery velocities (ICA PSV). 1. Normal (no stenosis)=ICA PSV < 125 cm/s: ratio < 2.0: ICA EDV<40 cm/s. 2. Less than 50% stenosis=ICA PSV < 125 cm/s: ratio < 2.0: ICA EDV<40 cm/s. 3. 50 to 69% stenosis=ICA PSV of 125 to 230 cm/s: ration 2.0 ? 4.0: ICA EDV 40-100 cm/s. 4. Greater than 70% stenosis to near occlusion= ICA PSV > 230 cm/s: ratio > 4.0: ICA EDV > 100 cm/s. 5. Near occlusion= ICA PSV velocities may be low or undetectable: variable ratio and ICA EDV. 6. Total occlusion=unable to detect flow.
[2018-09-26] MEDS ORDERED: VANCOMYCIN IV PER PHARMACY 1 EACH MISC MISCELLANE PRN (15:06)
[2018-09-26] MEDS ORDERED: VANCOMYCIN 2,000 MG in SODIUM CHLORIDE 0.9% 500 ML 500 ML IVPB ONE (15:45)
[2018-09-26] MEDS: methylPREDNISolone SOD SUCCI 40 MG/ML 1 ML VIAL IV SCH ×2 (17:46→23:16)
--- NOTE | 2018-09-26 18:21 | P.CNPUL ---
History of Present Illness Consult date: 09/26/18 Reason for consult: pneumonia Chief complaint: shortness of breath History of present illness: this is a 47-year-old female with history of mild intermittent asthma, according to her her asthma has been stable over the years, does not normally follow up with a primary care physician. Patient is also known to have history of generalized anxiety disorder, posttraumatic shock disorder, patient presented to the ER with 4 days history of cough, wheezing, shortness of breath , nasal congestion. Many family members had similar symptoms. Patient was seen in the ER, chest x-ray is consistent with bilateral pneumonia.patient was also noted to have fever, leukocytosis,normal lactic acid. Patient was admitted on 09/24/2018, placed on antibiotics in the form of Levaquin, follow-up chest x-ray today showed significant worsening of her infiltrates bilaterally. Patient is feeling a bit worse, but she is maintaining adequate saturation on 3 L nasal cannula, O2 saturation is 94%.her temperature has been running in the range of 99.9 however today it seems to be 97.9. At any rate considering her worsening chest x-ray and worsening pulmonary symptoms, this consult was initiated. Patient denies any headaches, no blurred vision, no dizziness. Denies any nausea no vomiting no abdominal pain. No melena no hematemesis is no dysuria and no frequency no urgency. Review of Systems 14 point review of systems were obtained, please refer to pertinent positives in HPI, otherwise remaining systems are negative. Past Medical History Past Medical History: Asthma, Pneumonia History of Any Multi-Drug Resistant Organisms: None Reported Past Surgical History: Ablation, Tubal Ligation Past Anesthesia/Blood Transfusion Reactions: No Reported Reaction Past Psychological History: Anxiety, PTSD Smoking Status: Current every day smoker Past Alcohol Use History: Rare Past Drug Use History: Marijuana - Past Family History Mother Family Medical History: Cancer, COPD Additional Family Medical History / Comment(s): breast ca at age 28. Father Family Medical History: Hypertension Medications and Allergies Home Medications Medication Instructions Recorded Confirmed Type Acetaminophen/Diphenhydramine 2 tab PO HS PRN 09/24/18 09/24/18 History [Tylenol PM 500-25mg] Ibuprofen [Motrin Ib] 600 mg PO Q6H PRN 09/24/18 09/24/18 History Allergies Allergy/AdvReac Type Severity Reaction Status Date / Time codeine Allergy Unknown Verified 09/24/18 08:12 tioconazole Allergy Unknown Verified 09/24/18 08:12 [From Monistat 1 (tioconazole)] Physical Exam Vitals: Vital Signs Temp Pulse Pulse Resp BP Pulse Ox 09/26/18 16:27 80 09/26/18 16:17 77 09/26/18 14:43 97.9 F 88 18 116/75 94 L 09/26/18 11:49 94 09/26/18 11:39 94 L 09/26/18 11:36 89 09/26/18 08:11 94 09/26/18 08:03 91 09/26/18 06:04 97.3 F L 76 18 136/84 93 L 09/25/18 23:00 98.4 F 105 H 18 146/63 94 L 09/25/18 20:06 108 H 09/25/18 19:57 103 H Intake and Output 09/26/18 09/26/18 09/26/18 06:59 14:59 22:59 Output Total 3 Balance -3 Output: Stool 3 Other: # Voids 1 Physical Exam: Revealed a 47-year-old female, obese, in no distress. Head: Atraumatic, normocephalic. HEENT:[Neck is supple.] [No neck masses.] [No thyromegaly.] [No JVD.]PERRLA, EOMI, no icterus. Moist mucous membranes. Chest: crackles or rhonchi and wheezes noted bilaterally. Symmetrical chest expansion, no chest wall tenderness..] Cardiac Exam: [Normal S1 and S2, no S3 gallop, no murmur.] Abdomen: [obese,Soft, nontender, no megaly, no rebound, no guarding, normal bowel sounds.] Extremities: [No clubbing, no edema, no cyanosis.] Neurological Exam: [No focal neurologic deficit.] skin: No rashes. Lymphatics: No lymphadenopathy. Results - Laboratory Findings CBC and BMP: 09/26/18 08:38 09/26/18 08:38 Abnormal lab findings: Abnormal Labs 09/24/18 09/26/18 09/26/18 01:10 08:38 08:38 WBC 21.3 H Potassium 3.3 L Glucose 107 H 151 H AST 64 H - Diagnostic Findings Chest x-ray: image reviewed (bilateral infiltrates consistent with pneumonia.) Assessment and Plan Assessment: impression: 1acute hypoxic respiratory failure secondary to bilateral pneumonia, community- acquired. 2mild intermittent asthma with acute exacerbation. 3 history of morbid obesity. 4 history of cluster headaches 5 history of posttraumatic shock disorder. 5 generalized anxiety disorder. Recommendation:continue Levaquin, and considering the significant worsening of the chest x-ray within few days, I recommended adding vancomycin, continue updrafts, continue Solu-Medrol, continue GI and DVT prophylaxis, continue oxygen and titrate accordingly keep saturation above 93%. However if the patient's condition gets any worse, patient may have a be transferred to ICU.Symbicort was also added. We'll continue to follow closely. Time with Patient: Greater than 30
[2018-09-26] MEDS: SYMBICORT 160-4.5 MCG INHALER INHALATION SCH (19:57)
[2018-09-26] MEDS: ASPIRIN 81 MG PO SCH (23:15)
[2018-09-26] MEDS: VANCOMYCIN 2,000 MG in SODIUM CHLORIDE 0.9% 500 ML 500 ML IVPB SCH (23:31)
[2018-09-26] MEDS: SODIUM CHLORIDE 0.9% 1,000 ML IV SCH (23:34)
[2018-09-27] MEDS: BUTALB/APAP/CAFF 50-325-40MG TAB PO PRN ×3 (00:15→11:10)
[2018-09-27] MEDS: IPRATROPIUM-ALBUTEROL 3 ML NEB INHALATION SCH ×4 (07:44→19:58)
[2018-09-27] MEDS: SYMBICORT 160-4.5 MCG INHALER INHALATION SCH ×2 (07:44→19:58)
--- NOTE | 2018-09-27 08:06 | CONS ---
CONSULTATION DATE OF SERVICE: 09/26/2018 REASON FOR CONSULTATION: Pneumonia and antibiotic recommendation. HISTORY OF PRESENT ILLNESS: The patient is a 47-year-old female with past medical history significant for asthma, generalized anxiety disorder. The patient presenting to the ER at [facility] on 09/24/2018 with chief complaints of increasing shortness of breath. She did have a congested cough, bringing up a small amount of sputum. No chest pain, hemoptysis. No significant URI symptoms. No nausea, no vomiting. No abdominal pain or any diarrhea. With these symptoms, on arrival to the ER, the patient did have a low- grade fever of 99.9. The patient's admission white count was normal at 10.4; however, repeat this morning is 21.3. Patient did have a chest x-ray on admission shows increased patchy perihilar and lower lobe opacity which may represent pulmonary versus inflammatory infectious process. The patient has been treated with Levaquin. The patient did have a repeat chest x-ray done yesterday that shows increasing bilateral infiltrate, correlate for pneumonia and atelectasis. The patient antibiotics were broadened to addition of vancomycin. She was continued on the Levaquin. Infectious Disease was consulted today for further recommendation regarding antibiotic therapy. REVIEW OF SYSTEMS: Positive points have been mentioned in HPI. The rest of the system has been negative. PAST MEDICAL HISTORY: Anxiety disorder and asthma. PAST SURGICAL HISTORY: Ablation and tubal ligation. SOCIAL HISTORY: The patient is currently every day smoker. Rarely drinks. Does admit to marijuana use. FAMILY HISTORY: No pertinent findings noticed. ALLERGIES: To CODEINE and . MEDICATIONS: The patient is currently on vancomycin 2 g q.12, he is on Solu-Medrol, Levaquin, Symbicort, DuoNeb, Tylenol. PHYSICAL EXAMINATION: Blood pressure is 116/75 with a pulse of 88, temperature 97.9. She is 94% on 3 L nasal cannula. General description is a middle aged female lying in bed in no distress. No tachypnea or accessory muscle for respiration use. HEENT EXAMINATION: Shows no pallor or scleral icterus. Oral mucosa is dry. No pharyngeal erythema or thrush. NECK: Trachea central, no thyromegaly. LUNGS: Unlabored breathing, decreased breath sounds. Occasional wheeze. HEART: S1, S2. Regular rate and rhythm. ABDOMEN: Soft, no tenderness. EXTREMITIES: No edema of the feet. SKIN EXAMINATION: No rash or mass palpable. NEUROLOGICAL: Patient is awake, alert, oriented. Mood and affect normal. LABS: Hemoglobin is 10.5, white count of 21.3, BUN of 14, creatinine 0.62, influenza serology was negative. Blood cultures obtained currently pending. DIAGNOSTIC IMPRESSION AND PLAN: Patient admitted to the hospital with increasing shortness of breath, a congested cough, bringing up some sputum in this patient who did have pulmonary features concerning likely for pneumonia. Influenza serology was negative. It seemed to have it is not responded very well to addition antibiotic regimen of Rocephin and Levaquin. PLAN: 1. Will try to obtain sputum for Gram stain, cultures obtained. 2. Patient is currently on vancomycin, pharmacy to dose and Levaquin to continue for now. 3. Depending upon the clinical response as well as cultures, will adjust her medications further if needed. Thank you for this consultation. Will follow this patient along with you. MMODL / IJN: [id number] /
[2018-09-27] MEDS: methylPREDNISolone SOD SUCCI 40 MG/ML 1 ML VIAL IV SCH ×2 (08:31→17:18)
[2018-09-27] MEDS: HEPARIN SODIUM,PORCINE 5,000 UNIT/ML 1 ML VIAL SQ SCH ×2 (08:31→21:53)
[2018-09-27] MEDS: ASPIRIN 81 MG PO SCH (08:31)
[2018-09-27] MEDS: FAMOTIDINE 20 MG/2 ML VIAL IV SCH (08:31)
[2018-09-27] MEDS: LEVOFLOXACIN 750 MG TAB PO SCH (08:31)
[2018-09-27 08:39] LABS: Anion Gap 7 mmol/L; Blood Urea Nitrogen 12 mg/dL (7-17); Calcium 8.4 mg/dL (8.4-10.2); Carbon Dioxide 27 mmol/L (22-30); Chloride 106 mmol/L (98-107); Glucose 132 mg/dL (74-99); Potassium 4.4 mmol/L (3.5-5.1); Sodium 140 mmol/L (137-145)
--- NOTE | 2018-09-27 08:57 | CONS ---
CONSULTATION CHIEF COMPLAINT: Pain and occasional blurry vision in the left eye. HISTORY OF PRESENT ILLNESS: Patient is complaining of the blurry vision and the mild pain in the left eye, which is described as deep pain, not related to eye movement and moderate and occurs several times a day, lasting for a few minutes. Patient is an avid reader and she would like to see better with her left eye. MEDICAL HISTORY: Patient was admitted for pneumonia. Medical history was evaluated. REVIEW OF SYSTEM: Reviewed. EYE EXAMINATION: Vision, both eyes are 20/20 for reading chart with pinhole. Patient states that she has different refraction in the left eye compared to the right eye. Extraocular motility full. Pupils are equal and reactive. Lids normal. Cornea clear. Anterior chamber is narrow in both eyes. Unable to do gonioscopy, patient is in her bed. Intra-ocular pressure was 17 mmHg right eye and 24 in the left eye. Lens 1+ NS OU. Retina was not dilated due to mild elevation of pressure and possible narrow angles. Retina dilation is deferred until seen in the office for gonioscopy before dilating the left eye. ASSESSMENT: 1. Possible narrow angle glaucoma left eye. 2. Eye pain. PLAN: I advised the patient to start on Xalatan 1 drop once a day, left eye. I would evaluate the patient in 3 days in the office at 1 pm. I am not worried because the vision is good in both eyes. I did not dilate of fear of narrow angle, needs gonioscopy before dilating. The elevated eye pressure is moderate and it will respond to the drops. To call my office if any problems. The vision was good and equal, so no concern about the retina at this point. I will see her in the office at 1 pm on Wednesday if she is discharged. MMODL / IJN: [id number] /
[2018-09-27 09:08] LABS: Basophils # (A) 0.1 k/uL (0-0.2); Basophils % (A) 0 %; Eosinophils % (A) 0 %; HCT 40.2 % (34.0-46.0); HGB 12.8 gm/dL (11.4-16.0); Lymphocytes # (A) 2.1 k/uL (1.0-4.8); Lymphocytes % (A) 12 %; MCH 30.1 pg (25.0-35.0); MCHC 31.8 g/dL (31.0-37.0); MCV 94.5 fL (80.0-100.0); Mean Platelet Volume 8.7; Monocytes # (A) 0.8 k/uL (0-1.0); Monocytes % (A) 5 %; Neutrophils # (A) 14.4 k/uL (1.3-7.7); Neutrophils % (A) 82 %; Platelet Count 251 k/uL (150-450); RBC 4.25 m/uL (3.80-5.40); RDW 13.2 % (11.5-15.5); WBC 17.7 k/uL (3.8-10.6)
[2018-09-27] MEDS: VANCOMYCIN 2,000 MG in SODIUM CHLORIDE 0.9% 500 ML 500 ML IVPB SCH ×2 (11:13→15:09)
--- NOTE | 2018-09-27 12:39 | P.PN ---
Subjective Progress Note Date: 09/27/18 Principal diagnosis: Acute hypoxic respiratory failure secondary to bilateral pneumonia, community- acquired this is a 47-year-old female with history of mild intermittent asthma, according to her her asthma has been stable over the years, does not normally follow up with a primary care physician. Patient is also known to have history of generalized anxiety disorder, posttraumatic shock disorder, patient presented to the ER with 4 days history of cough, wheezing, shortness of breath , nasal congestion. Many family members had similar symptoms. Patient was seen in the ER, chest x-ray is consistent with bilateral pneumonia.patient was also noted to have fever, leukocytosis,normal lactic acid. Patient was admitted on 09/24/2018, placed on antibiotics in the form of Levaquin, follow-up chest x-ray today showed significant worsening of her infiltrates bilaterally. Patient is feeling a bit worse, but she is maintaining adequate saturation on 3 L nasal cannula, O2 saturation is 94%.her temperature has been running in the range of 99.9 however today it seems to be 97.9. At any rate considering her worsening chest x-ray and worsening pulmonary symptoms, this consult was initiated. Patient denies any headaches, no blurred vision, no dizziness. Denies any nausea no vomiting no abdominal pain. No melena no hematemesis is no dysuria and no frequency no urgency. On 09/27/2018 patient seen in follow-up on medical surgical floor. Still quite dyspneic, coughing, she is able to bring up small amount of carlton-colored thick phlegm. Lung sounds are quite wheezy, tight, with diffuse inspiratory crackles , worse over right mid posterior lower lobe. Today's labs have been reviewed, leukocytosis is improving, down to 17.7, hemoglobin is 12.8, electrolyte and renal profile were within normal limits. ProBNP was 724. She has been afebrile. Pulse ox is 94% on 3 L. Blood and sputum cultures revealed no growth. Today we switch the antibiotic coverage to Levaquin and vancomycin. Additional sputum cultures will be sent. Objective - Vital Signs Vital signs: Vital Signs Temp 97.2 F L 09/27/18 07:00 Pulse 84 09/27/18 11:53 Resp 18 09/27/18 08:00 BP 124/68 09/27/18 07:00 Pulse Ox 94 L 09/27/18 07:00 Intake & Output 09/26/18 09/27/18 09/27/18 18:59 06:59 18:59 Intake Total 200 Output Total 3 Balance -3 200 Intake: Oral 200 Output: Stool 3 Other: # Voids 1 - Exam GENERAL EXAM: Alert, pleasant, 47-year-old obese white female on 3 L per nasal cannula mild short of breath, frequent coughing HEAD: Normocephalic/atraumatic. EYES: Normal reaction of pupils, equal size. Conjunctiva pink, sclera white. NOSE: Clear with pink turbinates. THROAT: No erythema or exudates. NECK: No masses, no JVD, no thyroid enlargement, no adenopathy. CHEST: No chest wall deformity. Symmetrical expansion. LUNGS: Equal air entry with diffuse wheezes throughout the lung ramsay, and inspiratory crackles, more so on the right CVS: Regular rate and rhythm, normal S1 and S2, no gallops, no murmurs, no rubs ABDOMEN: Soft, nontender. No hepatosplenomegaly, normal bowel sounds, no guarding or rigidity. EXTREMITIES: No clubbing, no edema, no cyanosis, 2+ pulses and upper and lower extremities. MUSCULOSKELETAL: Muscle strength and tone normal. SPINE: No scoliosis or deformity SKIN: No rashes CENTRAL NERVOUS SYSTEM: Alert and oriented -3. No focal deficits, tone is normal in all 4 extremities. PSYCHIATRIC: Alert and oriented -3. Appropriate affect. Intact judgment and insight. - Labs CBC & Chem 7: 09/27/18 07:53 09/27/18 07:53 Labs: Abnormal Lab Results - Last 24 Hours (Table) 09/27/18 09/27/18 Range/Units 07:53 07:53 WBC 17.7 H (3.8-10.6) k/uL Neutrophils # 14.4 H (1.3-7.7) k/uL Glucose 132 H (74-99) mg/dL Microbiology - Last 24 Hours (Table) 09/25/18 08:18 Gram Stain - Final Sputum Sputum Culture - Final 09/24/18 01:00 Blood Culture - Preliminary Blood No Growth after 72 hours 09/24/18 03:49 Blood Culture - Preliminary Blood No Growth after 72 hours 09/24/18 01:10 Blood Culture - Preliminary Blood No Growth after 72 hours Assessment and Plan Plan: Assessment: 1acute hypoxic respiratory failure secondary to bilateral pneumonia, community- acquired. 2mild intermittent asthma with acute exacerbation. 3 history of morbid obesity. 4 history of cluster headaches 5 history of posttraumatic shock disorder. 5 generalized anxiety disorder. Plan: Continue current antibiotic coverage, Vancomycin has been added. So far the cultures are negative, no fever, the patient remains quite bronchospastic, and short of breath. Continue with IV steroids, nebulized bronchodilators, we'll continue to follow. I performed a history & physical examination of the patient and discussed their management with my nurse practitioner, Griselda Smith. I reviewed the nurse practitioner's note and agree with the documented findings and plan of care. Lung sounds are positive for diffuse wheezes throughout the lung ramsay. The findings and the impression was discussed with the patient. I attest to the documentation by the nurse practitioner. Time with Patient: Less than 30
--- NOTE | 2018-09-27 12:51 | P.PN ---
Subjective This is a pleasant 47 years old female with past medical history of asthma, status post tubal ligation and ablation. Presents because of dyspnea. Patient was placed on Levaquin since her admission. However her chest x-ray showing worsening bilateral pneumonia. Ceftriaxone was added and called for pulmonary consult and infectious disease consult for further evaluation. Patient is still complaining of from dyspnea although she uses some of her accessory muscles and she can talks without difficulty. Patient denies chest pain. She has cough and worsening white phlegm. Sputum culture was sent done showing gram -positive cocci. Discontinue Toradol. Patient also was complaining of from pain around her left eye associated with blurred vision couple days ago but her vision is not blurry anymore. She had a CAT scan of the brain showing possible demyelinating disease versus inflammatory changes. Carotid duplex was ordered and underwent consult invas tech. 09/27/2018 Patient is seen in the general medical floor at 4 N. Patient states her dyspnea is getting worse with coughing and some phlegm however she denies chest pain. Patient saturating 94 on 3 L oxygen via NC. However she is becoming more tachypneic. We'll send for repeat chest x-ray. Pulmonary team are following the patient closely. Her leukocytosis is improving slightly with the adenopathy vancomycin and Levaquin coming down from 121 down to 17.7 K. Infectious disease consult is appreciated. Patient's states her left eye pain feels better. [employer] start her on Xalatan . Carotid Dopplers showing carotid artery stenosis. Will call cardiology consult for that. Aspirin is added. Patient continued to be on steroids with gentle hydration Review of systems CONSTITUTIONAL: No fever, no malaise, no fatigue. HEENT: No recent visual problems or hearing problems. Denied any sore throat. CARDIOVASCULAR: No orthopnea, PND, no palpitations, no syncope. PULMONARY: No shortness of breath, no cough, no hemoptysis. GASTROINTESTINAL: No diarrhea, no nausea, no vomiting, no abdominal pain. Normoactive bowel sounds. NEUROLOGICAL: No headaches, no weakness, no numbness. HEMATOLOGICAL: Denies any bleeding or petechiae. GENITOURINARY: Denies any burning micturition, frequency, or urgency. MUSCULOSKELETAL/RHEUMATOLOGICAL: Denies any joint pain, swelling, or any muscle pain. ENDOCRINE: Denies any polyuria or polydipsia. Medications: Tylenol, furosemide, albuterol, Mucinex, Toradol, levofloxacin, methylprednisolone, vancomycin, Xalatan eyedrops Objective - Vital Signs Vital signs: Vital Signs Temp 97.2 F L 09/27/18 07:00 Pulse 84 09/27/18 11:53 Resp 18 09/27/18 08:00 BP 124/68 09/27/18 07:00 Pulse Ox 94 L 09/27/18 07:00 Intake & Output 09/26/18 09/27/18 09/27/18 18:59 06:59 18:59 Intake Total 200 Output Total 3 Balance -3 200 Intake: Oral 200 Output: Stool 3 Other: # Voids 1 - Exam GENERAL: The patient is alert and oriented x3, not in any acute distress. Well developed, well nourished. HEENT: Pupils are round and equally reacting to light. EOMI. No scleral icterus. No conjunctival pallor. Normocephalic, atraumatic. No pharyngeal erythema. No thyromegaly. CARDIOVASCULAR: S1 and S2 present. No murmurs, rubs, or gallops. -PULMONARY: Chest is clear to auscultation, bilateral wheezing and coarse crepitation ABDOMEN: Soft, nontender, nondistended, normoactive bowel sounds. No palpable organomegaly. MUSCULOSKELETAL: No joint swelling or deformity. EXTREMITIES: No cyanosis, clubbing, or pedal edema. NEUROLOGICAL: Gross neurological examination did not reveal any focal deficits. SKIN: No rashes. - Labs CBC & Chem 7: 09/27/18 07:53 09/27/18 07:53 Labs: Abnormal Lab Results - Last 24 Hours (Table) 09/27/18 09/27/18 Range/Units 07:53 07:53 WBC 17.7 H (3.8-10.6) k/uL Neutrophils # 14.4 H (1.3-7.7) k/uL Glucose 132 H (74-99) mg/dL Microbiology - Last 24 Hours (Table) 09/25/18 08:18 Gram Stain - Final Sputum Sputum Culture - Final 09/24/18 01:00 Blood Culture - Preliminary Blood No Growth after 72 hours 09/24/18 03:49 Blood Culture - Preliminary Blood No Growth after 72 hours 09/24/18 01:10 Blood Culture - Preliminary Blood No Growth after 72 hours Assessment and Plan Assessment: Bilateral pneumonia Acute hypoxic respiratory failure secondary to above Pain behind left eye, with brief periods of blurred vision. Possible left eye glaucoma Left carotid artery stenosis. Frontal sinusitis Hypoattenuated subcortical foci of the brain History of asthma. Obesity Plan: This is a pleasant 47 years old female who presents because of bilateral pneumonia and left eye pain. Continue with antibiotics. Continue with steroids. Call infectious disease and pulmonary team consult. consult invas tech to evaluate eye pain started her on xalatin eyedrops. Continue with pain management. Continue with present treatment and oxygen.Labs and medication were reviewed.. Continue same treatment. Continue with symptomatic treatment. Resume home medication. Monitor lytes and vitals. DVT and GI prophylaxis. Further recommendations of the clinical course of the patient DVT prophylaxis: Subcutaneous heparin GI Prophylaxis: Pepcid PT/OT: Pending Prognosis is guarded
[2018-09-27] MEDS ORDERED: ALBUTEROL NEBULIZED 2.5 MG/3 ML INHALATION STA (12:52)
--- NOTE | 2018-09-27 13:06 | XR ---
EXAMINATION TYPE: XR chest 1V DATE OF EXAM: 09/27/2018 CLINICAL HISTORY: Difficulty breathing progress study. TECHNIQUE: Single AP portable upright view of the chest is obtained. COMPARISON: Chest x-ray from September 25, 2018 and older studies FINDINGS: Alveolar and interstitial opacities bilaterally remain present. No pleural effusion or pne umothorax is seen bilaterally. Crack silhouette size is stable and upper limits of normal. Osseous st ructures are intact. IMPRESSION: Redemonstration of diffuse bilateral alveolar and interstitial edema and/or infiltrates. Correlate for ARDS. No significant change from most recent prior.
[2018-09-27] MEDS: SODIUM CHLORIDE 0.9% 1,000 ML IV SCH (17:21)
[2018-09-27] MEDS: FAMOTIDINE 20 MG TAB PO SCH (21:53)
[2018-09-27] MEDS: LATANOPROST 0.005% OPHTH DROPS 2.5 ML BTL LEFT EYE SCH (21:54)
[2018-09-28] MEDS: VANCOMYCIN 2,000 MG in SODIUM CHLORIDE 0.9% 500 ML 500 ML IVPB SCH ×2 (00:24→12:41)
[2018-09-28] MEDS: methylPREDNISolone SOD SUCCI 40 MG/ML 1 ML VIAL IV SCH ×2 (00:24→08:02)
[2018-09-28] MEDS: BUTALB/APAP/CAFF 50-325-40MG TAB PO PRN ×3 (00:25→21:20)
--- NOTE | 2018-09-28 05:24 | PN ---
PROGRESS NOTE DATE OF SERVICE: 09/27/2018 REASON FOR FOLLOWUP: Pneumonia. INTERVAL HISTORY: The patient is currently afebrile. She is complaining of shortness of breath. She did have some cough and bringing up some sputum, but denies having any nausea, no vomiting. No abdominal pain. Mentioned not feeling well. PHYSICAL EXAMINATION: On examination, blood pressure 134/78 with the pulse 85, temperature 98.2. She is 94% on 3 L nasal cannula. General description is a middle-aged female lying in bed in no distress. RESPIRATORY SYSTEM: Unlabored breathing with expiratory wheeze. HEART: S1, S2. Regular rate and rhythm. ABDOMEN: Soft, no tenderness. LABS: Hemoglobin is 12.8, white count of 17.7 with a BUN of 12, creatinine 0.54. Influenza PCR has been negative. Sputum culture obtained currently pending. DIAGNOSTIC IMPRESSION AND PLAN: Patient with difficulty breathing and a cough in this patient with likely pneumonia. The patient is currently on Levaquin with vancomycin IV yesterday. white count slightly down and sputum culture to finalize. Continue supportive care. MMODL / IJN: [id number] /
[2018-09-28] MEDS: IPRATROPIUM-ALBUTEROL 3 ML NEB INHALATION SCH ×4 (07:25→19:16)
[2018-09-28] MEDS: SYMBICORT 160-4.5 MCG INHALER INHALATION SCH ×2 (07:25→19:16)
[2018-09-28 07:56] LABS: Basophils % (A) 0 %; Eosinophils # (A) 0.1 k/uL (0-0.7); Eosinophils % (A) 1 %; HCT 37.8 % (34.0-46.0); HGB 12.3 gm/dL (11.4-16.0); Lymphocytes # (A) 1.9 k/uL (1.0-4.8); Lymphocytes % (A) 18 %; MCH 30.8 pg (25.0-35.0); MCHC 32.6 g/dL (31.0-37.0); MCV 94.5 fL (80.0-100.0); Mean Platelet Volume 9.1; Monocytes # (A) 0.6 k/uL (0-1.0); Monocytes % (A) 6 %; Neutrophils # (A) 7.5 k/uL (1.3-7.7); Neutrophils % (A) 72 %; Platelet Count 261 k/uL (150-450); RDW 13.5 % (11.5-15.5); WBC 10.4 k/uL (3.8-10.6)
[2018-09-28] MEDS: LEVOFLOXACIN 750 MG TAB PO SCH (08:01)
[2018-09-28] MEDS: ASPIRIN 81 MG PO SCH (08:01)
[2018-09-28] MEDS: FAMOTIDINE 20 MG TAB PO SCH ×2 (08:01→21:20)
[2018-09-28] MEDS: HEPARIN SODIUM,PORCINE 5,000 UNIT/ML 1 ML VIAL SQ SCH ×2 (08:02→21:20)
[2018-09-28 08:09] LABS: Anion Gap 7 mmol/L; Blood Urea Nitrogen 11 mg/dL (7-17); Calcium 8.3 mg/dL (8.4-10.2); Carbon Dioxide 27 mmol/L (22-30); Chloride 106 mmol/L (98-107); Glucose 125 mg/dL (74-99); Potassium 4.6 mmol/L (3.5-5.1); Sodium 140 mmol/L (137-145)
[2018-09-28] MEDS ORDERED: FUROSEMIDE 10 MG/ML 2 ML VIAL IV ONE (08:34)
--- NOTE | 2018-09-28 10:27 | P.PN ---
Subjective This is a pleasant 47 years old female with past medical history of asthma, status post tubal ligation and ablation. Presents because of dyspnea. Patient was placed on Levaquin since her admission. However her chest x-ray showing worsening bilateral pneumonia. Ceftriaxone was added and called for pulmonary consult and infectious disease consult for further evaluation. Patient is still complaining of from dyspnea although she uses some of her accessory muscles and she can talks without difficulty. Patient denies chest pain. She has cough and worsening white phlegm. Sputum culture was sent done showing gram -positive cocci. Discontinue Toradol. Patient also was complaining of from pain around her left eye associated with blurred vision couple days ago but her vision is not blurry anymore. She had a CAT scan of the brain showing possible demyelinating disease versus inflammatory changes. Carotid duplex was ordered and underwent consult cheese cooker. 09/27/2018 Patient is seen in the general medical floor at 4 N. Patient states her dyspnea is getting worse with coughing and some phlegm however she denies chest pain. Patient saturating 94 on 3 L oxygen via NC. However she is becoming more tachypneic. We'll send for repeat chest x-ray. Pulmonary team are following the patient closely. Her leukocytosis is improving slightly with the adenopathy vancomycin and Levaquin coming down from 121 down to 17.7 K. Infectious disease consult is appreciated. Patient's states her left eye pain feels better. [facility] [employer] Worker start her on Xalatan . Carotid Dopplers showing carotid artery stenosis. Will call cardiology consult for that. Aspirin is added. Patient continued to be on steroids with gentle hydration 09/28/2018 patient states that she is a little bit better today and she is breathing with less difficulty. However on exam she still have wheezing and decreased air entry in both sides. She still have some cough with little phlegm but no chest pain. Patient remains on vancomycin for her bilateral pneumonia. Patient complaining also from her left eye pain which thinks is improving but she still needing the Fioricet and eyedrops recommended by the ophthalmologistfor her possible with,.patient aware that she needs to follow-up closely after discharge with the cheese cooker for her eye problem according to his recommendation.she is saturating 96% on 3 L. No tachycardia andRussell vitals are stable. Leukocytosis improved to 10.4. BMP was unremarkable. Review of systems CONSTITUTIONAL: No fever, no malaise, no fatigue. HEENT: No recent visual problems or hearing problems. Denied any sore throat. CARDIOVASCULAR: No orthopnea, PND, no palpitations, no syncope. PULMONARY: no hemoptysis. GASTROINTESTINAL: No diarrhea, no nausea, no vomiting, no abdominal pain. Normoactive bowel sounds. NEUROLOGICAL: No headaches, no weakness, no numbness. HEMATOLOGICAL: Denies any bleeding or petechiae. GENITOURINARY: Denies any burning micturition, frequency, or urgency. MUSCULOSKELETAL/RHEUMATOLOGICAL: Denies any joint pain, swelling, or any muscle pain. ENDOCRINE: Denies any polyuria or polydipsia. Medications: Tylenol, furosemide, albuterol, Mucinex, Toradol, levofloxacin, methylprednisolone, vancomycin, Xalatan eyedrops Objective - Vital Signs Vital signs: Vital Signs Temp 97.8 F 09/28/18 06:49 Pulse 88 09/28/18 07:48 Resp 20 09/28/18 08:08 BP 131/73 09/28/18 06:49 Pulse Ox 96 09/28/18 06:49 Intake & Output 09/27/18 09/28/18 09/28/18 18:59 06:59 18:59 Intake Total 100 Output Total 200 Balance -100 Intake: Oral 100 Output: Urine 200 Other: Voiding Method Bedside Commode # Voids 4 1 - Exam GENERAL: The patient is alert and oriented x3, not in any acute distress. Well developed, well nourished. HEENT: Pupils are round and equally reacting to light. EOMI. No scleral icterus. No conjunctival pallor. Normocephalic, atraumatic. No pharyngeal erythema. No thyromegaly. CARDIOVASCULAR: S1 and S2 present. No murmurs, rubs, or gallops. -PULMONARY: Chest is clear to auscultation, bilateral wheezing and coarse crepitation ABDOMEN: Soft, nontender, nondistended, normoactive bowel sounds. No palpable organomegaly. MUSCULOSKELETAL: No joint swelling or deformity. EXTREMITIES: No cyanosis, clubbing, or pedal edema. NEUROLOGICAL: Gross neurological examination did not reveal any focal deficits. SKIN: No rashes. - Labs CBC & Chem 7: 09/28/18 07:25 09/28/18 07:25 Labs: Abnormal Lab Results - Last 24 Hours (Table) 09/28/18 Range/Units 07:25 Glucose 125 H (74-99) mg/dL Calcium 8.3 L (8.4-10.2) mg/dL Microbiology - Last 24 Hours (Table) 09/24/18 01:00 Blood Culture - Preliminary Blood No Growth after 96 hours 09/24/18 03:49 Blood Culture - Preliminary Blood No Growth after 96 hours 09/24/18 01:10 Blood Culture - Preliminary Blood No Growth after 96 hours 09/27/18 11:34 Gram Stain - Preliminary Sputum Sputum Culture - Preliminary 09/25/18 08:18 Gram Stain - Final Sputum Sputum Culture - Final Assessment and Plan Assessment: Bilateral pneumonia Acute hypoxic respiratory failure secondary to above Possible left eye glaucoma, Pain behind left eye, with brief periods of blurred vision. Left carotid artery stenosis. Frontal sinusitis Hypoattenuated subcortical foci of the brain History of asthma. Obesity Plan: This is a pleasant 47 years old female who presents because of bilateral pneumonia and left eye pain. Continue with antibiotics. Continue with steroids. Call infectious disease and pulmonary team consult. consult cheese cooker to evaluate eye pain started her on xalatin eyedrops. Continue with pain management. Continue with present treatment and oxygen.Labs and medication were reviewed.. Continue same treatment. Continue with symptomatic treatment. Resume home medication. Monitor lytes and vitals. DVT and GI prophylaxis. Further recommendations of the clinical course of the patient DVT prophylaxis: Subcutaneous heparin GI Prophylaxis: Pepcid PT/OT: Pending Prognosis is guarded
[2018-09-28] MEDS ORDERED: VANCOMYCIN TROUGH DUE 1 EACH MISC MISCELLANE ONE (11:00)
--- NOTE | 2018-09-28 11:37 | P.PN ---
Subjective Progress Note Date: 09/28/18 Principal diagnosis: Acute hypoxic respiratory failure secondary to bilateral pneumonia, community- acquired this is a 47-year-old female with history of mild intermittent asthma, according to her her asthma has been stable over the years, does not normally follow up with a primary care physician. Patient is also known to have history of generalized anxiety disorder, posttraumatic shock disorder, patient presented to the ER with 4 days history of cough, wheezing, shortness of breath , nasal congestion. Many family members had similar symptoms. Patient was seen in the ER, chest x-ray is consistent with bilateral pneumonia.patient was also noted to have fever, leukocytosis,normal lactic acid. Patient was admitted on 09/24/2018, placed on antibiotics in the form of Levaquin, follow-up chest x-ray today showed significant worsening of her infiltrates bilaterally. Patient is feeling a bit worse, but she is maintaining adequate saturation on 3 L nasal cannula, O2 saturation is 94%.her temperature has been running in the range of 99.9 however today it seems to be 97.9. At any rate considering her worsening chest x-ray and worsening pulmonary symptoms, this consult was initiated. Patient denies any headaches, no blurred vision, no dizziness. Denies any nausea no vomiting no abdominal pain. No melena no hematemesis is no dysuria and no frequency no urgency. On 09/27/2018 patient seen in follow-up on medical surgical floor. Still quite dyspneic, coughing, she is able to bring up small amount of carlton-colored thick phlegm. Lung sounds are quite wheezy, tight, with diffuse inspiratory crackles , worse over right mid posterior lower lobe. Today's labs have been reviewed, leukocytosis is improving, down to 17.7, hemoglobin is 12.8, electrolyte and renal profile were within normal limits. ProBNP was 724. She has been afebrile. Pulse ox is 94% on 3 L. Blood and sputum cultures revealed no growth. Today we switch the antibiotic coverage to Levaquin and vancomycin. Additional sputum cultures will be sent. On 09/28/2018 patient seen in follow-up on medical surgical floor. She remains dyspneic, but in patients opinion she is slightly better compared to yesterday. Diffuse wheezes on today's exam, patient is bringing up thick carlton colored sputum. All cultures remain negative thus far. Antibiotic coverage includes Levaquin and vancomycin. Yesterday's follow-up chest x-ray showed early demonstration of diffuse bilateral alveolar and interstitial edema and/or infiltrates. Today's lab work was noted, white blood cell count is down to 10.4 , hemoglobin of 12.3, electrolytes and renal profile are unremarkable. Influenza screen was negative. Did complain about redness and swelling in her left upper arm area, patient has had multiple sticks for IV lab draws in that area, area slightly reddened, but not warm, not significantly swollen compared to the other arm. Overall patient seems to be a bit swollen especially in the upper arms. We'll give the patient a dose of IV Lasix Objective - Vital Signs Vital signs: Vital Signs Temp 97.8 F 09/28/18 06:49 Pulse 88 09/28/18 07:48 Resp 20 09/28/18 08:08 BP 131/73 09/28/18 06:49 Pulse Ox 96 09/28/18 06:49 Intake & Output 09/27/18 09/28/18 09/28/18 18:59 06:59 18:59 Intake Total 100 240 Output Total 200 Balance -100 240 Intake: Oral 100 240 Output: Urine 200 Other: Voiding Method Bedside Commode # Voids 4 1 - Exam GENERAL EXAM: Alert, pleasant, 47-year-old obese white female on 3 L per nasal cannula mild short of breath, frequent coughing HEAD: Normocephalic/atraumatic. EYES: Normal reaction of pupils, equal size. Conjunctiva pink, sclera white. NOSE: Clear with pink turbinates. THROAT: No erythema or exudates. NECK: No masses, no JVD, no thyroid enlargement, no adenopathy. CHEST: No chest wall deformity. Symmetrical expansion. LUNGS: Equal air entry with diffuse wheezes throughout the lung ramsay, and inspiratory crackles, more so on the right CVS: Regular rate and rhythm, normal S1 and S2, no gallops, no murmurs, no rubs ABDOMEN: Soft, nontender. No hepatosplenomegaly, normal bowel sounds, no guarding or rigidity. EXTREMITIES: No clubbing, no edema, no cyanosis, 2+ pulses and upper and lower extremities. MUSCULOSKELETAL: Muscle strength and tone normal. SPINE: No scoliosis or deformity SKIN: No rashes CENTRAL NERVOUS SYSTEM: Alert and oriented -3. No focal deficits, tone is normal in all 4 extremities. PSYCHIATRIC: Alert and oriented -3. Appropriate affect. Intact judgment and insight. - Labs CBC & Chem 7: 09/28/18 07:25 09/28/18 07:25 Labs: Abnormal Lab Results - Last 24 Hours (Table) 09/28/18 Range/Units 07:25 Glucose 125 H (74-99) mg/dL Calcium 8.3 L (8.4-10.2) mg/dL Microbiology - Last 24 Hours (Table) 09/24/18 01:00 Blood Culture - Preliminary Blood No Growth after 96 hours 09/24/18 03:49 Blood Culture - Preliminary Blood No Growth after 96 hours 09/24/18 01:10 Blood Culture - Preliminary Blood No Growth after 96 hours 09/27/18 11:34 Gram Stain - Preliminary Sputum Sputum Culture - Preliminary 09/25/18 08:18 Gram Stain - Final Sputum Sputum Culture - Final Assessment and Plan Plan: Assessment: 1acute hypoxic respiratory failure secondary to bilateral pneumonia, community- acquired. 2mild intermittent asthma with acute exacerbation. 3 history of morbid obesity. 4 history of cluster headaches 5 history of posttraumatic shock disorder. 5 generalized anxiety disorder. Plan: Obtain with current antibiotic coverage, all cultures remain negative thus far, no fever or chills, patient is still tachypneic, and dyspneic, although she states she is feeling slightly better on today's exam. We'll decrease IV fluids down, patient appears to be a bit swollen, yesterday's chest x-ray showed bilateral infiltrates, and interstitial edema, we'll give the patient had dose of IV Lasix today 20 mg 1. Continue with nebulized bronchodilators, IV steroids. Repeat chest x-ray in the morning I performed a history & physical examination of the patient and discussed their management with my nurse practitioner, Griselda Smith. I reviewed the nurse practitioner's note and agree with the documented findings and plan of care. Lung sounds are positive for diffuse wheezes throughout the lung ramsay. The findings and the impression was discussed with the patient. I attest to the documentation by the nurse practitioner. Time with Patient: Less than 30
--- NOTE | 2018-09-28 12:17 | US ---
EXAMINATION TYPE: US venous doppler duplex UE LT DATE OF EXAM: 09/28/2018 COMPARISON: NONE CLINICAL HISTORY: left arm swelling, r/o DVT. No redness. NO hx of blood clots. On blood thinners. Hx of multiple IV sites. SIDE PERFORMED: Left Grayscale, color doppler, spectral doppler imaging performed of the deep veins of the left upper extr emity. Left Arm: Negative for DVT Visualized portions of the left internal jugular vein, left subclavian vein, left axillary vein, left brachial veins, basilic and cephalic veins, ulnar and radial veins compress normally and show no abn ormal echoes, there is normal color flow. At the site of patient's swelling there is normal color flow. IMPRESSION: No evident deep venous thrombosis in the left upper extremity.
[2018-09-28] MEDS: SODIUM CHLORIDE 0.9% 1,000 ML IV SCH (12:43)
[2018-09-28] MEDS: methylPREDNISolone SOD SUCCI 125 MG/2 ML VIAL IV SCH (16:42)
[2018-09-28] MEDS: LATANOPROST 0.005% OPHTH DROPS 2.5 ML BTL LEFT EYE SCH (21:20)
[2018-09-29] MEDS: methylPREDNISolone SOD SUCCI 125 MG/2 ML VIAL IV SCH ×3 (00:48→15:29)
[2018-09-29] MEDS: VANCOMYCIN 1,750 MG in SODIUM CHLORIDE 0.9% 500 ML 500 ML IVPB SCH ×3 (00:49→15:28)
[2018-09-29] MEDS: BUTALB/APAP/CAFF 50-325-40MG TAB PO PRN ×3 (01:19→21:45)
--- NOTE | 2018-09-29 05:43 | PN ---
PROGRESS NOTE DATE OF SERVICE: 09/28/2018 REASON FOR FOLLOWUP: Pneumonia. INTERVAL HISTORY: The patient is afebrile. She is breathing slightly comfortably today. Patient denies having any chest pain. She did have some cough. No nausea, no vomiting. No abdominal pain or any diarrhea. PHYSICAL EXAMINATION: On examination, blood pressure is 104/52 with a pulse of 79, temperature of 98. She is 95% on 3 L nasal cannula. General description is a middle aged female lying in bed in no distress. RESPIRATORY SYSTEM: Unlabored breathing, slightly decreased breath sounds in the base. Occasional wheeze. HEART: S1, S2. Regular rate and rhythm. ABDOMEN: Soft, no tenderness. LABS: Hemoglobin 12.3, white count 10.4, BUN of 11, creatinine 0.57. Blood and sputum cultures are currently pending. DIAGNOSTIC IMPRESSION AND PLAN: Patient admitted to the hospital with asthma exacerbation with purulent tracheobronchitis and possible component of pneumonia. The patient is currently covered with Vancomycin of which we will continue for now while waiting for the culture to finalize. Continue with supportive care. MMODL / IJN: [id number] /
[2018-09-29] MEDS ORDERED: SODIUM CHLORIDE 0.65% NASAL SPRAY 44 ML BTL NASAL PRN (07:26)
[2018-09-29] MEDS: IPRATROPIUM-ALBUTEROL 3 ML NEB INHALATION SCH ×4 (08:10→21:21)
[2018-09-29] MEDS: SYMBICORT 160-4.5 MCG INHALER INHALATION SCH ×2 (08:10→21:21)
--- NOTE | 2018-09-29 08:55 | XR ---
EXAMINATION TYPE: XR chest 2V DATE OF EXAM: 09/29/2018 COMPARISON: Prior chest x-ray 09/27/2018 HISTORY: Shortness of breath TECHNIQUE: Frontal and lateral views of the chest are obtained. FINDINGS: Suspect there is some improvement in airspace disease compared to prior exam. No pneumotho rax or pleural effusion. Heart size is not significantly changed. Interstitium appears prominently. A leandra is dense. IMPRESSION: There is some improvement in aeration.
[2018-09-29 09:08] LABS: Basophils % (A) 0 %; Eosinophils % (A) 0 %; HCT 38.8 % (34.0-46.0); HGB 12.5 gm/dL (11.4-16.0); Lymphocytes # (A) 2.6 k/uL (1.0-4.8); Lymphocytes % (A) 24 %; MCH 30.9 pg (25.0-35.0); MCHC 32.3 g/dL (31.0-37.0); MCV 95.5 fL (80.0-100.0); Mean Platelet Volume 9.5; Monocytes # (A) 0.6 k/uL (0-1.0); Monocytes % (A) 6 %; Neutrophils # (A) 7.6 k/uL (1.3-7.7); Neutrophils % (A) 69 %; Platelet Count 283 k/uL (150-450); RBC 4.06 m/uL (3.80-5.40); RDW 13.3 % (11.5-15.5)
[2018-09-29] MEDS: FAMOTIDINE 20 MG TAB PO SCH ×2 (09:10→21:27)
[2018-09-29] MEDS: LEVOFLOXACIN 750 MG TAB PO SCH (09:10)
[2018-09-29] MEDS: ASPIRIN 81 MG PO SCH (09:10)
[2018-09-29] MEDS: HEPARIN SODIUM,PORCINE 5,000 UNIT/ML 1 ML VIAL SQ SCH ×2 (09:11→21:24)
--- NOTE | 2018-09-29 09:18 | P.PN ---
Subjective This is a pleasant 47 years old female with past medical history of asthma, status post tubal ligation and ablation. Presents because of dyspnea. Patient was placed on Levaquin since her admission. However her chest x-ray showing worsening bilateral pneumonia. Ceftriaxone was added and called for pulmonary consult and infectious disease consult for further evaluation. Patient is still complaining of from dyspnea although she uses some of her accessory muscles and she can talks without difficulty. Patient denies chest pain. She has cough and worsening white phlegm. Sputum culture was sent done showing gram -positive cocci. Discontinue Toradol. Patient also was complaining of from pain around her left eye associated with blurred vision couple days ago but her vision is not blurry anymore. She had a CAT scan of the brain showing possible demyelinating disease versus inflammatory changes. Carotid duplex was ordered and underwent consult computer applications instructor. 09/27/2018 Patient is seen in the general medical floor at 4 N. Patient states her dyspnea is getting worse with coughing and some phlegm however she denies chest pain. Patient saturating 94 on 3 L oxygen via NC. However she is becoming more tachypneic. We'll send for repeat chest x-ray. Pulmonary team are following the patient closely. Her leukocytosis is improving slightly with the adenopathy vancomycin and Levaquin coming down from 121 down to 17.7 K. Infectious disease consult is appreciated. Patient's states her left eye pain feels better. Heel Top Lift Splitter start her on Xalatan . Carotid Dopplers showing carotid artery stenosis. Will call cardiology consult for that. Aspirin is added. Patient continued to be on steroids with gentle hydration 09/28/2018 patient states that she is a little bit better today and she is breathing with less difficulty. However on exam she still have wheezing and decreased air entry in both sides. She still have some cough with little phlegm but no chest pain. Patient remains on vancomycin for her bilateral pneumonia. Patient complaining also from her left eye pain which thinks is improving but she still needing the Fioricet and eyedrops recommended by the ophthalmologistfor her possible with,.patient aware that she needs to follow-up closely after discharge with the computer applications instructor for her eye problem according to his recommendation.she is saturating 96% on 3 L. No tachycardia andRussell vitals are stable. Leukocytosis improved to 10.4. BMP was unremarkable. 09/29/2018 Patient feels much better while she is rest dyspnea is significantly improved however she still have some exertional dyspnea, she has some episodes of epistaxis which was stopped now, mostly related to her oxygen therapy and dryness. 2 headache and left eye pain are improving but slowly, and continue with the Fioricet and eyedrops recommended by computer applications instructor. Patient was informed about her problem with left carotid stenosis and abnormal CAT scan of the head. MRI of the brain is recommended by radiologist and patient agrees to do it. Unfortunately we don't have neurologist in the hospital currently. Patient also is not claustrophobic. Chest x-ray shows significant improvement. Sputum culture are still in progress. Patient is saturating well on 3 L oxygen via NC. Risks of Vitas looks stable. WBC is 11 K today.. She has some infiltrated abdomen IV line on the left arm over Doppler of the left upper extremity is negative. Review of systems CONSTITUTIONAL: No fever, no malaise, no fatigue. HEENT: No recent visual problems or hearing problems. Denied any sore throat. CARDIOVASCULAR: No orthopnea, PND, no palpitations, no syncope. PULMONARY: no hemoptysis. GASTROINTESTINAL: No diarrhea, no nausea, no vomiting, no abdominal pain. Normoactive bowel sounds. NEUROLOGICAL: No headaches, no weakness, no numbness. HEMATOLOGICAL: Denies any bleeding or petechiae. GENITOURINARY: Denies any burning micturition, frequency, or urgency. MUSCULOSKELETAL/RHEUMATOLOGICAL: Denies any joint pain, swelling, or any muscle pain. ENDOCRINE: Denies any polyuria or polydipsia. Medications: Tylenol, furosemide, albuterol, Mucinex, Toradol, levofloxacin, methylprednisolone, vancomycin, Xalatan eyedrops Objective - Vital Signs Vital signs: Vital Signs Temp 97.9 F 09/29/18 04:48 Pulse 58 L 09/29/18 04:48 Resp 16 09/29/18 04:48 BP 153/83 09/29/18 04:48 Pulse Ox 91 L 09/29/18 04:48 Intake & Output 09/28/18 09/29/18 09/29/18 18:59 06:59 18:59 Intake Total 480 Balance 480 Intake: Oral 480 Other: Voiding Method Bedside Commode # Voids 3 1 # Bowel Movements 1 - Exam GENERAL: The patient is alert and oriented x3, not in any acute distress. Well developed, well nourished. HEENT: Pupils are round and equally reacting to light. EOMI. No scleral icterus. No conjunctival pallor. Normocephalic, atraumatic. No pharyngeal erythema. No thyromegaly. CARDIOVASCULAR: S1 and S2 present. No murmurs, rubs, or gallops. -PULMONARY: Chest is clear to auscultation, bilateral wheezing and coarse crepitation ABDOMEN: Soft, nontender, nondistended, normoactive bowel sounds. No palpable organomegaly. MUSCULOSKELETAL: No joint swelling or deformity. EXTREMITIES: No cyanosis, clubbing, or pedal edema. NEUROLOGICAL: Gross neurological examination did not reveal any focal deficits. SKIN: No rashes. - Labs CBC & Chem 7: 09/28/18 07:25 09/28/18 07:25 Labs: Microbiology - Last 24 Hours (Table) 09/24/18 01:00 Blood Culture - Preliminary Blood No Growth after 120 hours 09/24/18 03:49 Blood Culture - Preliminary Blood No Growth after 120 hours 09/24/18 01:10 Blood Culture - Preliminary Blood No Growth after 120 hours Assessment and Plan Assessment: Bilateral pneumonia Acute hypoxic respiratory failure secondary to above Possible left eye glaucoma, Pain behind left eye, with brief periods of blurred vision. Left carotid artery stenosis. Frontal sinusitis Hypoattenuated subcortical foci of the brain on History of asthma. Obesity Plan: This is a pleasant 47 years old female who presents because of bilateral pneumonia and left eye pain. Continue with antibiotics. Continue with steroids. Call infectious disease and pulmonary team consult. consult computer applications instructor to evaluate eye pain started her on xalatin eyedrops. Continue with pain management. Continue with present treatment and oxygen.Labs and medication were reviewed.. Continue same treatment. Continue with symptomatic treatment. Resume home medication. Monitor lytes and vitals. DVT and GI prophylaxis. Further recommendations of the clinical course of the patient DVT prophylaxis: Subcutaneous heparin GI Prophylaxis: Pepcid PT/OT: Pending Prognosis is guarded
[2018-09-29 09:50] LABS: Anion Gap 8 mmol/L; Blood Urea Nitrogen 19 mg/dL (7-17); Calcium 8.3 mg/dL (8.4-10.2); Carbon Dioxide 27 mmol/L (22-30); Chloride 103 mmol/L (98-107); Glucose 132 mg/dL (74-99); Potassium 4.5 mmol/L (3.5-5.1); Sodium 138 mmol/L (137-145)
--- NOTE | 2018-09-29 11:00 | P.PN ---
Subjective Progress Note Date: 09/29/18 Principal diagnosis: Acute hypoxic respiratory failure secondary to bilateral pneumonia, community- acquired this is a 47-year-old female with history of mild intermittent asthma, according to her her asthma has been stable over the years, does not normally follow up with a primary care physician. Patient is also known to have history of generalized anxiety disorder, posttraumatic shock disorder, patient presented to the ER with 4 days history of cough, wheezing, shortness of breath , nasal congestion. Many family members had similar symptoms. Patient was seen in the ER, chest x-ray is consistent with bilateral pneumonia.patient was also noted to have fever, leukocytosis,normal lactic acid. Patient was admitted on 09/24/2018, placed on antibiotics in the form of Levaquin, follow-up chest x-ray today showed significant worsening of her infiltrates bilaterally. Patient is feeling a bit worse, but she is maintaining adequate saturation on 3 L nasal cannula, O2 saturation is 94%.her temperature has been running in the range of 99.9 however today it seems to be 97.9. At any rate considering her worsening chest x-ray and worsening pulmonary symptoms, this consult was initiated. Patient denies any headaches, no blurred vision, no dizziness. Denies any nausea no vomiting no abdominal pain. No melena no hematemesis is no dysuria and no frequency no urgency. On 09/27/2018 patient seen in follow-up on medical surgical floor. Still quite dyspneic, coughing, she is able to bring up small amount of carlton-colored thick phlegm. Lung sounds are quite wheezy, tight, with diffuse inspiratory crackles , worse over right mid posterior lower lobe. Today's labs have been reviewed, leukocytosis is improving, down to 17.7, hemoglobin is 12.8, electrolyte and renal profile were within normal limits. ProBNP was 724. She has been afebrile. Pulse ox is 94% on 3 L. Blood and sputum cultures revealed no growth. Today we switch the antibiotic coverage to Levaquin and vancomycin. Additional sputum cultures will be sent. On 09/28/2018 patient seen in follow-up on medical surgical floor. She remains dyspneic, but in patients opinion she is slightly better compared to yesterday. Diffuse wheezes on today's exam, patient is bringing up thick carlton colored sputum. All cultures remain negative thus far. Antibiotic coverage includes Levaquin and vancomycin. Yesterday's follow-up chest x-ray showed early demonstration of diffuse bilateral alveolar and interstitial edema and/or infiltrates. Today's lab work was noted, white blood cell count is down to 10.4 , hemoglobin of 12.3, electrolytes and renal profile are unremarkable. Influenza screen was negative. Did complain about redness and swelling in her left upper arm area, patient has had multiple sticks for IV lab draws in that area, area slightly reddened, but not warm, not significantly swollen compared to the other arm. Overall patient seems to be a bit swollen especially in the upper arms. We'll give the patient a dose of IV Lasix On 09/29/2018 patient seen in follow-up. Doing better, although remains dyspneic with exertion, but more comfortable at rest. Remains on 3 L per nasal cannula her pulse ox is 95%, afebrile, less tachypneic, less tachycardic. Today 's labs showed white blood cell count of 11.0, hemoglobin of 12.5, electrolytes were within normal limits, BUN is 19 and creatinine 0.58. Any better coverage in the form of Levaquin and vancomycin. Blood and sputum cultures remain negative to date. Today's chest x-ray showed improved aeration bilaterally. Objective - Vital Signs Vital signs: Vital Signs Temp 97.9 F 09/29/18 04:48 Pulse 58 L 09/29/18 04:48 Resp 16 09/29/18 04:48 BP 153/83 09/29/18 04:48 Pulse Ox 91 L 09/29/18 04:48 Intake & Output 09/28/18 09/29/18 09/29/18 18:59 06:59 18:59 Intake Total 480 Balance 480 Intake: Oral 480 Other: Voiding Method Bedside Commode Toilet # Voids 3 1 # Bowel Movements 1 - Exam GENERAL EXAM: Alert, pleasant, 47-year-old obese white female on 3 L per nasal cannula mild short of breath, frequent coughing HEAD: Normocephalic/atraumatic. EYES: Normal reaction of pupils, equal size. Conjunctiva pink, sclera white. NOSE: Clear with pink turbinates. THROAT: No erythema or exudates. NECK: No masses, no JVD, no thyroid enlargement, no adenopathy. CHEST: No chest wall deformity. Symmetrical expansion. LUNGS: Equal air entry with diffuse wheezes, and rales CVS: Regular rate and rhythm, normal S1 and S2, no gallops, no murmurs, no rubs ABDOMEN: Soft, nontender. No hepatosplenomegaly, normal bowel sounds, no guarding or rigidity. EXTREMITIES: No clubbing, no edema, no cyanosis, 2+ pulses and upper and lower extremities. MUSCULOSKELETAL: Muscle strength and tone normal. SPINE: No scoliosis or deformity SKIN: No rashes CENTRAL NERVOUS SYSTEM: Alert and oriented -3. No focal deficits, tone is normal in all 4 extremities. PSYCHIATRIC: Alert and oriented -3. Appropriate affect. Intact judgment and insight. - Labs CBC & Chem 7: 09/29/18 08:02 09/29/18 08:02 Labs: Abnormal Lab Results - Last 24 Hours (Table) 09/29/18 09/29/18 Range/Units 08:02 08:02 WBC 11.0 H (3.8-10.6) k/uL BUN 19 H (7-17) mg/dL Glucose 132 H (74-99) mg/dL Calcium 8.3 L (8.4-10.2) mg/dL Microbiology - Last 24 Hours (Table) 09/24/18 01:00 Blood Culture - Preliminary Blood No Growth after 120 hours 09/24/18 03:49 Blood Culture - Preliminary Blood No Growth after 120 hours 09/24/18 01:10 Blood Culture - Preliminary Blood No Growth after 120 hours Assessment and Plan Plan: Assessment: 1acute hypoxic respiratory failure secondary to bilateral pneumonia, community- acquired. 2mild intermittent asthma with acute exacerbation. 3 history of morbid obesity. 4 history of cluster headaches 5 history of posttraumatic shock disorder. 5 generalized anxiety disorder. Plan: Continue with current plan of treatment, continue current antibiotic coverage, culture data is negative to date. Clinically patient reports improvement. Increase activity as tolerated. Ambulate the patient. Today's chest x-ray shows improvement in aeration, improvement in the appearance of interstitial edema. Not ready for discharge. I performed a history & physical examination of the patient and discussed their management with my nurse practitioner, Griselda Smith. I reviewed the nurse practitioner's note and agree with the documented findings and plan of care. Lung sounds are positive for diffuse wheezes throughout the lung ramsay. The findings and the impression was discussed with the patient. I attest to the documentation by the nurse practitioner. Time with Patient: Less than 30
--- NOTE | 2018-09-29 15:15 | MR ---
MR brain without contrast HISTORY: Abnormal head CT Multiplanar multisequence imaging through the brain Correlation CT brain 09/24/2018 There is no restricted diffusion. There is no hemorrhage or hydrocephalus. The corpus callosum, pitui tary, cervical medullary junction, cerebellopontine angles are normal. Brain signal is maintained. Th ere are normal vascular flow voids. Mild mucosal disease present in the ethmoid air cells and frontal sinus. Orbits show symmetric appearance. IMPRESSION: Mild sinus disease.
[2018-09-29] MEDS: SODIUM CHLORIDE 0.9% 1,000 ML IV SCH (15:30)
[2018-09-29] MEDS: LATANOPROST 0.005% OPHTH DROPS 2.5 ML BTL LEFT EYE SCH (21:31)
[2018-09-30] MEDS: methylPREDNISolone SOD SUCCI 125 MG/2 ML VIAL IV SCH ×2 (00:02→09:28)
--- NOTE | 2018-09-30 00:11 | PN ---
PROGRESS NOTE DATE OF SERVICE: 09/29/2018. REASON FOR FOLLOWUP: Pneumonia. INTERVAL HISTORY: The patient is afebrile. She is breathing slightly comfortably. The patient did have some cough but not bringing up any sputum. No chest pain. No nausea, no vomiting. No abdominal pain or any diarrhea. PHYSICAL EXAMINATION: Blood pressure 124/77 with a pulse of 93, temperature 98.1, she is 94% 2 L nasal cannula. GENERAL DESCRIPTION: A middle-aged female up in the bed in no distress. RESPIRATORY SYSTEM: Unlabored breathing with occasional wheeze. HEART: S1, S2. Regular rate and rhythm. LABS: Hemoglobin is 12.5 white count 11, BUN of 19, creatinine 0.53. Sputum with Lucie albicans. Chest x-ray with slight improvement. DIAGNOSTIC IMPRESSION AND PLAN: Patient with acute exacerbation of underlying pneumonia, possibly community-acquired as the sputum has been negative so far for MRSA or resistant pathogen. We will discontinue the vancomycin and Rocephin. Continue Levaquin. Continue to monitor clinical course closely. Continue supportive care. MMBRANDIEL / BREN: [id number] /
[2018-09-30 06:59] VITALS: BP 150/87; RESP 20; TEMP 97.9
[2018-09-30] MEDS ORDERED: VANCOMYCIN TROUGH DUE 1 EACH MISC MISCELLANE ONE (07:00)
[2018-09-30 07:05] LABS: Basophils % (A) 0 %; Eosinophils # (A) 0.1 k/uL (0-0.7); Eosinophils % (A) 0 %; HCT 38.4 % (34.0-46.0); HGB 12.8 gm/dL (11.4-16.0); Lymphocytes # (A) 2.5 k/uL (1.0-4.8); Lymphocytes % (A) 21 %; MCH 31.5 pg (25.0-35.0); MCHC 33.4 g/dL (31.0-37.0); MCV 94.2 fL (80.0-100.0); Mean Platelet Volume 8.3; Monocytes # (A) 0.6 k/uL (0-1.0); Monocytes % (A) 5 %; Neutrophils # (A) 8.4 k/uL (1.3-7.7); Neutrophils % (A) 71 %; Platelet Count 301 k/uL (150-450); RBC 4.07 m/uL (3.80-5.40); RDW 13.2 % (11.5-15.5); WBC 11.7 k/uL (3.8-10.6)
[2018-09-30 07:29] LABS: Anion Gap 9 mmol/L; Blood Urea Nitrogen 20 mg/dL (7-17); Calcium 8.2 mg/dL (8.4-10.2); Carbon Dioxide 26 mmol/L (22-30); Chloride 104 mmol/L (98-107); Glucose 140 mg/dL (74-99); Potassium 5.3 mmol/L (3.5-5.1); Sodium 139 mmol/L (137-145)
[2018-09-30] MEDS: IPRATROPIUM-ALBUTEROL 3 ML NEB INHALATION SCH ×2 (08:51→11:55)
[2018-09-30] MEDS: SYMBICORT 160-4.5 MCG INHALER INHALATION SCH (09:00)
[2018-09-30] MEDS: LEVOFLOXACIN 750 MG TAB PO SCH (09:28)
[2018-09-30] MEDS: FAMOTIDINE 20 MG TAB PO SCH (09:28)
[2018-09-30] MEDS: HEPARIN SODIUM,PORCINE 5,000 UNIT/ML 1 ML VIAL SQ SCH (09:28)
[2018-09-30] MEDS: ASPIRIN 81 MG PO SCH (09:29)
[2018-09-30 12:05] VITALS: BMI 46.4
[2018-09-30 12:06] VITALS: PULSE 62
[2018-09-30] MEDS: SODIUM CHLORIDE 0.9% 1,000 ML IV SCH (12:37)
[2018-09-30 12:53] LABS: Anion Gap 8 mmol/L; Blood Urea Nitrogen 19 mg/dL (7-17); Calcium 8.6 mg/dL (8.4-10.2); Carbon Dioxide 25 mmol/L (22-30); Chloride 104 mmol/L (98-107); Glucose 132 mg/dL (74-99); Potassium 4.4 mmol/L (3.5-5.1); Sodium 137 mmol/L (137-145)
--- NOTE | 2018-09-30 14:47 | P.PN ---
Subjective Progress Note Date: 09/30/18 Principal diagnosis: Acute hypoxic respiratory failure secondary to bilateral pneumonia, community- acquired this is a 47-year-old female with history of mild intermittent asthma, according to her her asthma has been stable over the years, does not normally follow up with a primary care physician. Patient is also known to have history of generalized anxiety disorder, posttraumatic shock disorder, patient presented to the ER with 4 days history of cough, wheezing, shortness of breath , nasal congestion. Many family members had similar symptoms. Patient was seen in the ER, chest x-ray is consistent with bilateral pneumonia.patient was also noted to have fever, leukocytosis,normal lactic acid. Patient was admitted on 09/24/2018, placed on antibiotics in the form of Levaquin, follow-up chest x-ray today showed significant worsening of her infiltrates bilaterally. Patient is feeling a bit worse, but she is maintaining adequate saturation on 3 L nasal cannula, O2 saturation is 94%.her temperature has been running in the range of 99.9 however today it seems to be 97.9. At any rate considering her worsening chest x-ray and worsening pulmonary symptoms, this consult was initiated. Patient denies any headaches, no blurred vision, no dizziness. Denies any nausea no vomiting no abdominal pain. No melena no hematemesis is no dysuria and no frequency no urgency. On 09/27/2018 patient seen in follow-up on medical surgical floor. Still quite dyspneic, coughing, she is able to bring up small amount of carlton-colored thick phlegm. Lung sounds are quite wheezy, tight, with diffuse inspiratory crackles , worse over right mid posterior lower lobe. Today's labs have been reviewed, leukocytosis is improving, down to 17.7, hemoglobin is 12.8, electrolyte and renal profile were within normal limits. ProBNP was 724. She has been afebrile. Pulse ox is 94% on 3 L. Blood and sputum cultures revealed no growth. Today we switch the antibiotic coverage to Levaquin and vancomycin. Additional sputum cultures will be sent. On 09/28/2018 patient seen in follow-up on medical surgical floor. She remains dyspneic, but in patients opinion she is slightly better compared to yesterday. Diffuse wheezes on today's exam, patient is bringing up thick carlton colored sputum. All cultures remain negative thus far. Antibiotic coverage includes Levaquin and vancomycin. Yesterday's follow-up chest x-ray showed early demonstration of diffuse bilateral alveolar and interstitial edema and/or infiltrates. Today's lab work was noted, white blood cell count is down to 10.4 , hemoglobin of 12.3, electrolytes and renal profile are unremarkable. Influenza screen was negative. Did complain about redness and swelling in her left upper arm area, patient has had multiple sticks for IV lab draws in that area, area slightly reddened, but not warm, not significantly swollen compared to the other arm. Overall patient seems to be a bit swollen especially in the upper arms. We'll give the patient a dose of IV Lasix On 09/29/2018 patient seen in follow-up. Doing better, although remains dyspneic with exertion, but more comfortable at rest. Remains on 3 L per nasal cannula her pulse ox is 95%, afebrile, less tachypneic, less tachycardic. Today 's labs showed white blood cell count of 11.0, hemoglobin of 12.5, electrolytes were within normal limits, BUN is 19 and creatinine 0.58. Any better coverage in the form of Levaquin and vancomycin. Blood and sputum cultures remain negative to date. Today's chest x-ray showed improved aeration bilaterally. On 09/30/2018 patient seen in follow-up on medical surgical floor. She is resting comfortably in bed, in no acute distress, breathing easier, less congested and wheezy. She remains on supplemental oxygen, currently on 2 L, with a pulse ox of 95%, patient did desaturate on room air to 78 percent. She will qualify for home oxygen. Cultures remain negative, sputum culture showed Lucie albicans. Current antibiotic coverage cyst of IV Rocephin at 2 g every 24 hours, no fever or chills, patient has tolerated ambulation, doing well. He is requesting to go home today, from pulmonary perspective she stable for discharge home, with follow-up with Dr. Red next week. Objective - Vital Signs Vital signs: Vital Signs Temp 97.9 F 09/30/18 06:49 Pulse 62 09/30/18 12:06 Resp 20 09/30/18 06:49 BP 150/87 09/30/18 06:49 Pulse Ox 78 L 09/30/18 08:40 Intake & Output 02/09/30/18 09/30/18 18:59 06:59 18:59 Intake Total 480 Balance 480 Weight 111.5 kg Intake: Oral 480 Other: Voiding Method Toilet Toilet # Voids 3 3 - Exam GENERAL EXAM: Alert, pleasant, 47-year-old obese white female on 3 L per nasal cannula mild short of breath, frequent coughing HEAD: Normocephalic/atraumatic. EYES: Normal reaction of pupils, equal size. Conjunctiva pink, sclera white. NOSE: Clear with pink turbinates. THROAT: No erythema or exudates. NECK: No masses, no JVD, no thyroid enlargement, no adenopathy. CHEST: No chest wall deformity. Symmetrical expansion. LUNGS: Equal air entry with diminished breath sounds, minimal wheezing. CVS: Regular rate and rhythm, normal S1 and S2, no gallops, no murmurs, no rubs ABDOMEN: Soft, nontender. No hepatosplenomegaly, normal bowel sounds, no guarding or rigidity. EXTREMITIES: No clubbing, no edema, no cyanosis, 2+ pulses and upper and lower extremities. MUSCULOSKELETAL: Muscle strength and tone normal. SPINE: No scoliosis or deformity SKIN: No rashes CENTRAL NERVOUS SYSTEM: Alert and oriented -3. No focal deficits, tone is normal in all 4 extremities. PSYCHIATRIC: Alert and oriented -3. Appropriate affect. Intact judgment and insight. - Labs CBC & Chem 7: 09/30/18 06:49 09/30/18 12:15 Labs: Abnormal Lab Results - Last 24 Hours (Table) 09/30/18 09/30/18 09/30/18 Range/Units 06:49 06:49 12:15 WBC 11.7 H (3.8-10.6) k/uL Neutrophils # 8.4 H (1.3-7.7) k/uL Potassium 5.3 H (3.5-5.1) mmol/L BUN 20 H 19 H (7-17) mg/dL Glucose 140 H 132 H (74-99) mg/dL Calcium 8.2 L (8.4-10.2) mg/dL Microbiology - Last 24 Hours (Table) 09/24/18 01:00 Blood Culture - Final Blood No Growth after 144 hours 09/24/18 03:49 Blood Culture - Final Blood No Growth after 144 hours 09/24/18 01:10 Blood Culture - Final Blood No Growth after 144 hours 09/27/18 11:34 Gram Stain - Final Sputum Sputum Culture - Final Lucie albicans Assessment and Plan Plan: Assessment: 1acute hypoxic respiratory failure secondary to bilateral pneumonia, community- acquired. 2mild intermittent asthma with acute exacerbation. 3 history of morbid obesity. 4 history of cluster headaches 5 history of posttraumatic shock disorder. 5 generalized anxiety disorder. Plan: Patient is doing well, less dyspneic, no fever or chills, culture data negative. Tolerating ambulation. Less congested and wheezy. From pulmonary perspective she stable for discharge home today on antibiotics per ID service recommendation. Prednisone taper, Symbicort and albuterol inhaler and home oxygen. Follow up with Dr. Scott in 1 week I performed a history & physical examination of the patient and discussed their management with my nurse practitioner, Griselda Smith. I reviewed the nurse practitioner's note and agree with the documented findings and plan of care. Lung sounds are positive for diffuse wheezes throughout the lung ramasy. The findings and the impression was discussed with the patient. I attest to the documentation by the nurse practitioner. Time with Patient: Less than 30
--- NOTE | 2018-09-30 16:15 | PN ---
PROGRESS NOTE DATE OF SERVICE: 09/30/2018. REASON FOR FOLLOWUP: Pneumonia, community acquired. INTERVAL HISTORY: The patient is afebrile. The patient did mention feeling much better, breathing comfortably. Denies having any chest pain. Cough has decreased in intensity. No abdominal pain. No nausea, vomiting and wants to go home. PHYSICAL EXAMINATION: Blood pressure 150/87 with a pulse of 78, temperature 97.9. She is 95% on 2 L nasal cannula. General description is a middle-aged female up in the bed in no distress. Respiratory system: Unlabored breathing with decreased breath sounds. No wheeze. Heart S1, S2. Regular rate and rhythm. ABDOMEN: Soft. No tenderness LABS: White count of 11.7, creatinine 0.6. Potassium 4.4. Sputum is Lucie albicans. Blood culture remains to be negative. DIAGNOSTIC IMPRESSION AND PLAN: Patient with a component of asthma exacerbation with possible pneumonia, community acquired. Sputum negative for resistant pathogen. She will finish therapy with oral Levaquin for another 5-7 days with close outpatient followup. Continue supportive care. MMODL / IJN: [id number] /
--- NOTE | 2018-10-07 14:18 | P.DS ---
Providers Date of admission: 09/24/18 02:52 Attending physician: Giulia Álvarez Consults: 09/26/18 10:06 Consult Physician Urgent Consulting Provider: Ok Scott Consult Reason/Comments: pneumonia Do you want consulting provider notified?: Yes 09/26/18 13:48 Consult Physician Urgent Consulting Provider: Shakira Mathews Consult Reason/Comments: Worsening pneumonia Do you want consulting provider notified?: Yes 09/26/18 13:56 Consult Physician Urgent Consulting Provider: Darlyn Cho Consult Reason/Comments: left eye blurry Do you want consulting provider notified?: Yes 09/26/18 22:37 Consult Physician Routine Consulting Provider: Shakira Mathews Consult Reason/Comments: pneumonia Do you want consulting provider notified?: Yes Primary care physician: Stated None Hospital Course: no need for home oxygen she just wanted to make appointment with child nurse Dx Bilateral pneumonia Acute hypoxic respiratory failure secondary to above Possible left eye glaucoma, Pain behind left eye, with brief periods of blurred vision. Left carotid artery stenosis. Frontal sinusitis Hypoattenuated subcortical foci of the brain on ct of brain , MRI of brain was negative History of asthma. Obesity his is a pleasant 47 years old female with past medical history of asthma, status post tubal ligation and ablation. Presents because of dyspnea. Patient was placed on Levaquin since her admission. However her chest x-ray showing worsening bilateral pneumonia. Ceftriaxone was added and called for pulmonary consult and infectious disease consult for further evaluation. Patient is still complaining of from dyspnea although she uses some of her accessory muscles and she can talks without difficulty. pt then was placed on vancomycin by pulmonary team .Sputum culture was sent done showing gram-positive cocci. pt start improving gradually , and showed interval improvement and on the day of discharge she could breath quietly , no accessory muscle, pt was cleared for discharge by pulmonary team . Patient also was complaining of from pain around her left eye associated with blurred vision couple days ago but her vision is not blurry anymore. She had a CAT scan of the brain showing possible demyelinating disease versus inflammatory changes. Carotid duplex was ordered and underwent consult table games floor supervisor. MRI of the brain is recommended by radiologist and patient agrees to do it. Unfortunately we don't have neurologist in the hospital currently. MRI of brain did not show significant abnormality as per radiologist report. Named Account Executive start her on Xalatan . she start feeling better and he asked to f/u with him in few days after discharge,, pt showed me his business card and tole me she will f/u on the day of discharge pt remains with no chest pain , no dyspnea , no abd pain or n/v, no change in urine or bowel habits. when checked for oxygen need, she did not need home oxygen.she just wanted staff to help her make appointment with child nurse pt was cleared by pulmonary and ID and ophthalmology team for discharge Pt was instructed about the problems and management plan and Pt verbalized understanding and acceptance Pt is found stable and can be discharged to the community but needs follow up as outpt. pt agrees with appointments and their timing and stated he will follow up. pt was instructed to f/u with her pcp and other doctors within one week, see dc instructions Discharge exam Gen.: Patient alert awake and oriented X 3, NOT IN DISTRESS CVS: s1-s2, RRR, no murmur CHEST:bilateral CTA, no wheezing or crepitation Abdomen: Soft, no tenderness, no distention, positive bowel sounds Extremities: No leg edema or induration time spent : more than 35 min Patient Condition at Discharge: Serious Plan - Discharge Summary Discharge Rx Participant: No New Discharge Prescriptions: New Acetaminophen Tab [Tylenol] 650 mg PO Q6HR PRN tab PRN Reason: Fever And/ Or Pain Albuterol Inhaler [Ventolin Hfa Inhaler] 1 - 2 puff INHALATION RT-Q6H PRN #1 inhaler PRN Reason: Shortness Of Breath Or Wheezing Aspirin 81 mg PO DAILY #15 chew Famotidine [Pepcid] 20 mg PO Q12HR #14 tab Latanoprost Ophth [Xalatan 0.005%] 1 drops LEFT EYE HS 30 Days #1 vial Levofloxacin [Levaquin] 750 mg PO DAILY 7 Days #7 tab predniSONE 10 mg PO DIRECTED #30 tab Budesonide-Formot 160-4.5 Mcg [Symbicort 160-4.5 Mcg Inhaler] 1 puff INHALATION RT-BID #1 puff Butalb/APAP/Caff 50-325-40Mg [Fioricet 50-325-40] 1 each PO Q12HR PRN #2 tab PRN Reason: Headache Discontinued Acetaminophen/Diphenhydramine [Tylenol PM 500-25mg] 2 tab PO HS PRN PRN Reason: Pain Ibuprofen [Motrin Ib] 600 mg PO Q6H PRN PRN Reason: Pain Discharge Medication List Acetaminophen Tab [Tylenol] 650 mg PO Q6HR PRN tab 09/30/18 [Rx] Albuterol Inhaler [Ventolin Hfa Inhaler] 1 - 2 puff INHALATION RT-Q6H PRN #1 inhaler 09/30/18 [Rx] Aspirin 81 mg PO DAILY #15 chew 09/30/18 [Rx] Budesonide-Formot 160-4.5 Mcg [Symbicort 160-4.5 Mcg Inhaler] 1 puff INHALATION RT-BID #1 puff 09/30/18 [Rx] Butalb/APAP/Caff 50-325-40Mg [Fioricet 50-325-40] 1 each PO Q12HR PRN #2 tab [Rx] Famotidine [Pepcid] 20 mg PO Q12HR #14 tab 09/30/18 [Rx] Latanoprost Ophth [Xalatan 0.005%] 1 drops LEFT EYE HS 30 Days #1 vial 09/30/18 [Rx] Levofloxacin [Levaquin] 750 mg PO DAILY 7 Days #7 tab 09/30/18 [Rx] predniSONE 10 mg PO DIRECTED #30 tab 09/30/18 [Rx] Follow up Appointment(s)/Referral(s): Ok Scott MD [STAFF PHYSICIAN] - 10/06/18 1:00 pm Agapito Espinoza MD [STAFF PHYSICIAN] - 2 Weeks (developmental mathematics instructor , for your left internal carotid artery stenosis (50-69%)) Darlyn Cho MD [STAFF PHYSICIAN] - 1 Week (would like to follow up in office on discharge) [facility] [NON-STAFF] - 1 Week Patient Instructions/Handouts: Pneumonia (DC) Activity/Diet/Wound Care/Special Instructions: regular diet activity is limited till you see your doctor Discharge Disposition: HOME SELF-CARE
--- NOTE | 2018-10-12 11:15 | CDI ---
Documentation Clarification Form Date: 10/12/2018 10:03:00 AM From: Eloisa Castillo Roz Darby, Cabin Supervisor Hours-8:30 am & 5 pm M-Flora Admit Date: 09/24/2018 2:52:00 AM Patient Name: Alondra Slaughter Visit Number: [id number] Discharge Date: 09/30/2018 3:02:00 PM ATTENTION: The Clinical Documentation Specialists (CDI) and [facility] Coding Staff appreciate your assistance in clarifying documentation. Please respond to the clarification below the line at the bottom and electronically sign. The CDI & [facility] Coding staff will review the response and follow-up if needed. Please note: Queries are made part of the Legal Health Record. If you have any questions, please contact the author of this message via ITS. Dr. Giulia Álvarez Pneumonia was documented in your notes on H&P, PNs, DS. In order to capture the severity of condition, please clarify if the condition signifies and you are treating for: Bacterial Pneumonia, specify causal organism (if known) Lucie Gram Negative Pneumonia Due to Strep Due to Staph Due to E. Coli Other bacteria (please specify) Viral Pneumonia, specify casual organism (if known) Other, please specify Unable to determine Unable to determine MTDD
== END 2018-09-30 15:02 | disposition home or self-care (01) | DRG 193 ==
LOC: EC 00:30 → 4MS4W 02:52
PROVIDERS: ADMIT Hospitalist; ATTEND Hospitalist
PROC: 05HF33Z Insertion of Infusion Device into Left Cephalic Vein, Percutaneous Approach (ICD-10-PCS; principal; 2018-09-27 14:45)
DX: J18.9 Pneumonia, unspecified organism (principal); J96.01 Acute respiratory failure with hypoxia; Z68.42 Body mass index [BMI] 45.0-49.9, adult; J45.21 Mild intermittent asthma with (acute) exacerbation; E66.01 Morbid (severe) obesity due to excess calories; I65.22 Occlusion and stenosis of left carotid artery; F17.200 Nicotine dependence, unspecified, uncomplicated; F41.1 Generalized anxiety disorder; G44.009 Cluster headache syndrome, unspecified, not intractable; F43.10 Post-traumatic stress disorder, unspecified; H57.12 Ocular pain, left eye; H53.8 Other visual disturbances; J32.1 Chronic frontal sinusitis; J41.1 Mucopurulent chronic bronchitis; R04.0 Epistaxis; T50.906A Underdosing of unspecified drugs, medicaments and biological substances, initial encounter; H40.9 Unspecified glaucoma; Z91.120 Patient's intentional underdosing of medication regimen due to financial hardship; Z98.51 Tubal ligation status; Z88.3 Allergy status to other anti-infective agents; Z88.5 Allergy status to narcotic agent; Z82.5 Family history of asthma and other chronic lower respiratory diseases; Z80.3 Family history of malignant neoplasm of breast; Z82.49 Family history of ischemic heart disease and other diseases of the circulatory system
CPT/HCPCS: 36410; 36415; 70450; 70551; 71045; 71046; 76937; 80048; 80053; 80202; 83605; 83880; 85025; 85027; 87040; 87070; 87205; 87502; 93005; 93880; 94640; 94760; 96361; 96365; 96375; 99285

== ENCOUNTER → 2019-04-06 | Outpatient (CLI) | payer OTHER ==
[2019-04-06 15:45] LABS: LDL Cholesterol,Calculated 82.2 mg/dL (0.0-131.0); VLDL Calculation 23.8 mg/dL (5.00-40.00)
== END | disposition home or self-care (01) ==
LOC: LABWHC1 08:32
PROVIDERS: ATTEND Internal Medicine Cardiovascular Disease
DX: E78.2 Mixed hyperlipidemia (principal)
CPT/HCPCS: 36415; 80061; 84450; 84460

== ENCOUNTER → 2019-05-16 | Outpatient (CLI) | payer OTHER ==
[2019-05-16 07:05] LABS: HGB 13.3 gm/dL (11.4-16.0); MCH 31.9 pg (25.0-35.0); MCHC 35.1 g/dL (31.0-37.0); MCV 90.8 fL (80.0-100.0); Platelet Count 272 k/uL (150-450); RBC 4.19 m/uL (3.80-5.40); RDW 13.2 % (11.5-15.5); WBC 11.1 k/uL (3.8-10.6)
[2019-05-16 12:06] LABS: African American GFR (CKD) 119.6 (60.0-200.0); Albumin 4.3 g/dL (3.80-4.90); Albumin/Globulin Ratio 2.53 (1.60-3.17); Anion Gap 10.2 mmol/L (4.00-12.00); Calcium 9.1 mg/dL (8.7-10.3); Carbon Dioxide 26.8 mmol/L (21.6-31.8); Globulin 1.7 g/dL (1.6-3.3); Potassium 4.1 mmol/L (3.5-5.5); Total Bilirubin 0.3 mg/dL (0.2-1.2)
[2019-05-16 12:12] LABS: DHEA Sulfate 33.4 ug/dL (26.0-430.0)
[2019-05-16 12:13] LABS: Follicle Stimulating Hormone 49.6 mIU/mL
[2019-05-16 12:14] LABS: T4, Free (Free Thyroxine) 0.9 ng/dL (0.80-1.80)
[2019-05-16 12:15] LABS: Ferritin 158.6 ng/mL (10.0-291.0)
[2019-05-16 13:31] LABS: Estradiol 14.8 pg/mL
[2019-05-16 14:56] LABS: Hemoglobin A1C 5.7 % (4.0-6.0)
[2019-05-16 16:52] LABS: Hepatitis C IgG Antibody Non-Reactive (Non-Reactive)
== END | disposition home or self-care (01) ==
LOC: LABWHC1 06:43
PROVIDERS: ATTEND Family Medicine
DX: E78.5 Hyperlipidemia, unspecified (principal); E66.01 Morbid (severe) obesity due to excess calories; D64.9 Anemia, unspecified; L68.0 Hirsutism; E28.319 Asymptomatic premature menopause
CPT/HCPCS: 36415; 80053; 82533; 82550; 82627; 82670; 82728; 83001; 83002; 83036; 84403; 84439; 84443; 84481; 85027; 86803

== ENCOUNTER 2019-07-27 09:27 | Day surgery (SDC) | payer OTHER ==
[2019-07-27 09:56] VITALS: TEMP 97.7
[2019-07-27] MEDS ORDERED: ALPRAZolam 0.5 MG TAB PO STA (10:01)
--- NOTE | 2019-07-27 10:48 | US ---
ULTRASOUND GUIDED FNA THYROID BIOPSY: CLINICAL HISTORY: Left thyroid nodule FINDINGS: The procedure was explained to the patient. The risks, complications, benefits and alternatives were discussed and any questions were answered. Informed consent was obtained. Patient was placed supin e on the ultrasound table and prepped and draped in the usual sterile fashion. Utilizing a 25 gauge needle, five passes were made into the requested left thyroid nodule. Patient was stable throughout the procedure. Pathology is pending. All elements of maximal barrier technique were utilized. IMPRESSION: 1. Successful ultrasound guided FNA thyroid biopsy.
[2019-07-27 11:10] VITALS: BP 112/71; PULSE 71; RESP 16
== END 2019-07-27 10:45 | disposition home or self-care (01) ==
LOC: RADPROMAIN 09:27
PROVIDERS: ATTEND Family Medicine
DX: E04.1 Nontoxic single thyroid nodule (principal)
CPT/HCPCS: 10005; 88173; 88305

== ENCOUNTER → 2020-09-10 | Outpatient (CLI) | payer OTHER ==
--- NOTE | 2020-09-12 11:35 | MM ---
Reason for exam: screening (asymptomatic). History: Patient is postmenopausal. Family history of breast cancer in mother at age 28. Physical Findings: A clinical breast exam by your physician is recommended on an annual basis and results should be correlated with mammographic findings. MG Screening Mammo w CAD Bilateral CC and MLO view(s) were taken. No prior studies available for comparison. There are scattered fibroglandular densities. Finding: There are typically benign round, diffuse/scattered calcifications in both breasts. There is no discrete abnormality. ASSESSMENT: Benign, BI-RAD 2 RECOMMENDATION: Routine screening mammogram of both breasts in 1 year.
== END | disposition home or self-care (01) ==
LOC: RADMAMWWP 15:06
PROVIDERS: ATTEND Family Medicine
DX: Z12.31 Encounter for screening mammogram for malignant neoplasm of breast (principal); Z80.3 Family history of malignant neoplasm of breast
CPT/HCPCS: 77067

== ENCOUNTER → 2021-04-23 | Outpatient (CLI) | payer OTHER ==
--- NOTE | 2021-04-23 12:17 | EST ---
EXERCISE STRESS AGE: 50 SEX: F HT: 5'1" WT: 220 lbs. PROTOCOL: Luis Alberto STAGE: 2 DURATION OF EXERCISE: 5:14 HEART RATE REST: 55 BLOOD PRESSURE REST: 106/80 MAXIMUM HEART RATE ACHIEVED: 156 MAXIMUM BLOOD PRESSURE: 169/80 85% MPHR: 145 100% MPHR: 171 METS: 7.1 INDICATIONS: Chest pain with abnormal EKG. CLINICAL INFORMATION: Baseline EKG shows sinus rhythm with poor R-wave progression. Patient exercised on Luis Alberto protocol for a total of 5 minutes, achieving 6 METS, 91% of predicted maximal heart rate, without chest pain or diagnostic ST-segment depression. CONCLUSIONS: 1. Average exercise tolerance. 2. Negative stress test by EKG criteria. MMODL / IJN: [id number] /
== END | disposition home or self-care (01) ==
LOC: RADNMMAIN 09:01
PROVIDERS: ATTEND Family Medicine
DX: R07.9 Chest pain, unspecified (principal)
CPT/HCPCS: 93017

== ENCOUNTER 2021-09-15 17:40 | Emergency (ER) | payer OTHER ==
[2021-09-15 17:45] VITALS: TEMP 97.3
[2021-09-15] MEDS ORDERED: MORPHINE SULFATE 4 MG/ML SYRINGE IVP STA (17:58)
[2021-09-15 18:21] LABS: Basophils # (A) 0.1 k/uL (0-0.2); Basophils % (A) 1 %; Eosinophils # (A) 0.2 k/uL (0-0.7); Eosinophils % (A) 1 %; HGB 14.3 gm/dL (11.4-16.0); Lymphocytes # (A) 3.9 k/uL (1.0-4.8); Lymphocytes % (A) 32 %; MCH 31.9 pg (25.0-35.0); MCHC 33.3 g/dL (31.0-37.0); MCV 95.8 fL (80.0-100.0); Mean Platelet Volume 8.1; Monocytes # (A) 0.6 k/uL (0-1.0); Monocytes % (A) 5 %; Neutrophils # (A) 7.4 k/uL (1.3-7.7); Neutrophils % (A) 60 %; Platelet Count 278 k/uL (150-450); RBC 4.49 m/uL (3.80-5.40); RDW 13.1 % (11.5-15.5); WBC 12.3 k/uL (3.8-10.6)
--- NOTE | 2021-09-15 18:28 | ED ---
General Adult HPI - General Chief complaint: Chest Pain Stated complaint: Chest Pain,Light Headed Source: patient, family Mode of arrival: wheelchair Limitations: no limitations - History of Present Illness Initial comments: 50 year old female with past medical history of asthma, hyperlipidemia presents to the emergency department with chest pain. Patient states she has had chest pain for 2 hours prior to hospital arrival. Located over the left chest wall with associated nausea, lightheadedness and shortness of breath. She denies previous history of cardiac disease. Did have a stress test in April which was normal. She denies any traumatic injuries to her chest wall. She is not on any blood thinners. She does not take any medications her symptoms at home. No fevers, chills or cough. Denies history of DVT or PE. No calf pain or swelling. No ripping or tearing sensation to her back. No other alleviating, precipitating or modifying factors - Related Data Home Medications Medication Instructions Recorded Confirmed Ubidecarenone [Co Q-10] 100 mg PO DAILY 07/14/19 09/15/21 Ascorbic Acid [Vitamin C] 1,000 mg PO DAILY 09/15/21 09/15/21 Cholecalciferol [Vitamin D3 (25 25 mcg PO Q48H 09/15/21 09/15/21 Mcg = 1000 Iu)] Levothyroxine Sodium [Synthroid] 75 mcg PO DAILY 09/15/21 09/15/21 Multivitamin/Iron/Folic Acid 1 tab PO Q48H 09/15/21 09/15/21 [Centrum Women Tablet] Sealy-3 Fatty Acids/Fish Oil [Fish 1 cap PO DAILY 09/15/21 09/15/21 Oil 1,000 mg Softgel] Vitamin B Complex 1 cap PO Q48H 09/15/21 09/15/21 Previous Rx's Medication Instructions Recorded traMADol HCL [Ultram] 50 mg PO Q6HR PRN #18 tab 09/15/21 Allergies Allergy/AdvReac Type Severity Reaction Status Date / Time codeine Allergy shortness Verified 09/15/21 19:11 of breath/chest pain tioconazole Allergy hives Verified 09/15/21 19:11 [From Monistat 1 (tioconazole)] Review of Systems ROS Statement: Those systems with pertinent positive or pertinent negative responses have been documented in the HPI. ROS Other: All systems not noted in ROS Statement are negative. Past Medical History Past Medical History: Asthma, Hyperlipidemia, Osteoarthritis (OA), Pneumonia Additional Past Medical History / Comment(s): thyroid nodules, pre diabetic History of Any Multi-Drug Resistant Organisms: None Reported Past Surgical History: Tubal Ligation Additional Past Surgical History / Comment(s): uterine ablation, D & C Past Anesthesia/Blood Transfusion Reactions: No Reported Reaction Past Psychological History: Anxiety, PTSD Smoking Status: Vaper Past Alcohol Use History: Rare Past Drug Use History: Marijuana - Past Family History Mother Family Medical History: Cancer, COPD Additional Family Medical History / Comment(s): breast ca at age 28. Father Family Medical History: Hypertension General Exam Limitations: no limitations Course Vital Signs 09/15/21 09/15/21 09/15/21 17:42 19:27 23:12 Temperature 97.3 F L Pulse Rate 95 84 88 Respiratory 16 18 18 Rate Blood Pressure 130/92 134/94 148/76 O2 Sat by Pulse 97 96 97 Oximetry EKG Findings - EKG Comments: EKG Findings:: EKG demonstrates normal sinus rhythm with a ventricular rate of 91. ME interval 148. QRS 84. QTC 467. No acute ST segment elevations or depressions concerning for ischemic changes. Medical Decision Making - Medical Decision Making Upon arrival patient was placed into trauma 2. A thorough history and physical exam is performed. She is placed on continuous pulse ox and cardiac monitoring. 12-lead EKG is obtained which demonstrates normal sinus rhythm. IV access est ablished the patient is given 4 of morphine. Laboratory studies are conducted. D-dimer elevated at 0.51. Troponin is negative. Patient does have an x-ray performed which demonstrates no acute intrathoracic process. CT is followed up with the chest x-ray due to her elevated d-dimer which demonstrates no acute PE. Results are discussed the patient. I did recommend admission however patient refused. I did recommend at least a second troponin for which the patient did agree to. Troponin found to be negative 2 and therefore patient will be discharged home to follow-up with her primary care doctor. She is given a prescription for pain medications. Instructed to call and see her doctor within the next 2-4 days. Return for any worsening symptoms for patient was discharged home in stable condition - Lab Data Result diagrams: 09/15/21 18:02 09/15/21 18:02 Lab Results 01/09/15/21 09/15/21 Range/Units 18:02 18:02 18:02 WBC 12.3 H (3.8-10.6) k/uL RBC 4.49 (3.80-5.40) m/uL Hgb 14.3 (11.4-16.0) gm/dL Hct 43.0 (34.0-46.0) % MCV 95.8 (80.0-100.0) fL MCH 31.9 (25.0-35.0) pg MCHC 33.3 (31.0-37.0) g/dL RDW 13.1 (11.5-15.5) % Plt Count 278 (150-450) k/uL MPV 8.1 Neutrophils % 60 % Lymphocytes % 32 % Monocytes % 5 % Eosinophils % 1 % Basophils % 1 % Neutrophils # 7.4 (1.3-7.7) k/uL Lymphocytes # 3.9 (1.0-4.8) k/uL Monocytes # 0.6 (0-1.0) k/uL Eosinophils # 0.2 (0-0.7) k/uL Basophils # 0.1 (0-0.2) k/uL PT 9.5 (9.0-12.0) sec INR 0.8 (<1.2) APTT 22.1 (22.0-30.0) sec D-Dimer 0.51 (<0.60) mg/L FEU Sodium 136 L (137-145) mmol/L Potassium 4.3 (3.5-5.1) mmol/L Chloride 103 (98-107) mmol/L Carbon Dioxide 23 (22-30) mmol/L Anion Gap 10 mmol/L BUN 15 (7-17) mg/dL Creatinine 0.85 (0.52-1.04) mg/dL Est GFR (CKD-EPI)AfAm >90 (>60 ml/min/1.73 sqM) Est GFR (CKD-EPI)NonAf 81 (>60 ml/min/1.73 sqM) Glucose 96 (74-99) mg/dL Calcium 9.7 (8.4-10.2) mg/dL Magnesium 2.0 (1.6-2.3) mg/dL Total Bilirubin 0.4 (0.2-1.3) mg/dL AST 29 (14-36) U/L ALT 29 (4-34) U/L Alkaline Phosphatase 103 (38-126) U/L Troponin I (0.000-0.034) ng/mL Total Protein 7.8 (6.3-8.2) g/dL Albumin 4.9 (3.5-5.0) g/dL Lipase 135 (23-300) U/L 09/15/21 09/15/21 Range/Units 18:02 22:31 WBC (3.8-10.6) k/uL RBC (3.80-5.40) m/uL Hgb (11.4-16.0) gm/dL Hct (34.0-46.0) % MCV (80.0-100.0) fL MCH (25.0-35.0) pg MCHC (31.0-37.0) g/dL RDW (11.5-15.5) % Plt Count (150-450) k/uL MPV Neutrophils % % Lymphocytes % % Monocytes % % Eosinophils % % Basophils % % Neutrophils # (1.3-7.7) k/uL Lymphocytes # (1.0-4.8) k/uL Monocytes # (0-1.0) k/uL Eosinophils # (0-0.7) k/uL Basophils # (0-0.2) k/uL PT (9.0-12.0) sec INR (<1.2) APTT (22.0-30.0) sec D-Dimer (<0.60) mg/L FEU Sodium (137-145) mmol/L Potassium (3.5-5.1) mmol/L Chloride (98-107) mmol/L Carbon Dioxide (22-30) mmol/L Anion Gap mmol/L BUN (7-17) mg/dL Creatinine (0.52-1.04) mg/dL Est GFR (CKD-EPI)AfAm (>60 ml/min/1.73 sqM) Est GFR (CKD-EPI)NonAf (>60 ml/min/1.73 sqM) Glucose (74-99) mg/dL Calcium (8.4-10.2) mg/dL Magnesium (1.6-2.3) mg/dL Total Bilirubin (0.2-1.3) mg/dL AST (14-36) U/L ALT (4-34) U/L Alkaline Phosphatase (38-126) U/L Troponin I <0.012 <0.012 (0.000-0.034) ng/mL Total Protein (6.3-8.2) g/dL Albumin (3.5-5.0) g/dL Lipase (23-300) U/L Disposition Clinical Impression: Chest pain Disposition: HOME SELF-CARE Condition: Stable Instructions (If sedation given, give patient instructions): Chest Pain (ED) Additional Instructions: Please follow up with your PCP in 2-4 days. You need an echo and holter monitoring. Return for any new or worsening symptoms. Prescriptions: traMADol HCL [Ultram] 50 mg PO Q6HR PRN #18 tab PRN Reason: Pain Is patient prescribed a controlled substance at d/c from ED?: Yes When asked, does pt state using other controlled substances?: No If prescribed controlled substance>3 days was MAPS reviewed?: Prescribed <3 Days Referrals: Saba Bradshaw MD [Primary Care Provider] - 1-2 days Time of Disposition: 22:53
[2021-09-15 18:33] LABS: ALT 29 U/L (4-34); AST 29 U/L (14-36); African American GFR (CKD) >90 (>60 ml/min/1.73 sqM); Albumin 4.9 g/dL (3.5-5.0); Alkaline Phosphatase 103 U/L (38-126); Anion Gap 10 mmol/L; Blood Urea Nitrogen 15 mg/dL (7-17); Calcium 9.7 mg/dL (8.4-10.2); Carbon Dioxide 23 mmol/L (22-30); Chloride 103 mmol/L (98-107); Glucose 96 mg/dL (74-99); Lipase 135 U/L (23-300); Non-African American GFR(CKD) 81 (>60 ml/min/1.73 sqM); Potassium 4.3 mmol/L (3.5-5.1); Sodium 136 mmol/L (137-145); Total Bilirubin 0.4 mg/dL (0.2-1.3); Total Protein 7.8 g/dL (6.3-8.2)
[2021-09-15 18:39] LABS: INR 0.8 (<1.2); Partial Thromboplastin Time 22.1 sec (22.0-30.0); Prothrombin Time 9.5 sec (9.0-12.0)
--- NOTE | 2021-09-15 18:52 | XR ---
EXAMINATION TYPE: XR chest 2V DATE OF EXAM: 09/15/2021 COMPARISON: 10/06/2018 HISTORY: Chest pain FINDINGS: Heart and mediastinum are normal. Lungs are clear. Diaphragm is normal. Bony thorax is intact. IMPRESSION: Normal chest. No change.
[2021-09-15 19:29] VITALS: RESP 18
[2021-09-15] MEDS ORDERED: HYDROmorphone 1 MG/ML 1 ML SYRINGE IVP STA (19:40)
[2021-09-15] MEDS ORDERED: ONDANSETRON 4 MG/2 ML VIAL IVP STA (21:27)
--- NOTE | 2021-09-15 21:51 | CT ---
EXAMINATION TYPE: CT chest angio for PE DATE OF EXAM: 09/15/2021 COMPARISON: None HISTORY: chest pain CT DLP: 684.8 mGycm Automated exposure control for dose reduction was used. CONTRAST: Performed with IV Contrast, patient injected with 76cc mL of Isovue 370. Images obtained from the thoracic inlet to the diaphragm with IV contrast. There are Three-D postproc essed images. The lungs are clear of infiltrate. There is no evidence of pleural effusion or pneumothorax. There is no mediastinal adenopathy. There are no hilar masses. Thoracic aorta is intact. There is no aneurysm or dissection. There is normal contrast opacification of the pulmonary arteries. There are n o filling defects. The thoracic spine is intact. There is no compression fracture. Sternum is intact. The upper abdomina l soft tissues appear intact. IMPRESSION: Negative exam. No evidence of pulmonary embolism. No evidence of a pulmonary mass.
[2021-09-15 23:52] VITALS: BP 134/76; PULSE 78
== END 2021-09-16 00:01 | disposition home or self-care (01) ==
LOC: EC 17:40
DX: R07.89 Other chest pain (principal); J45.909 Unspecified asthma, uncomplicated; E78.5 Hyperlipidemia, unspecified; M19.90 Unspecified osteoarthritis, unspecified site; F41.9 Anxiety disorder, unspecified; F43.12 Post-traumatic stress disorder, chronic; F17.290 Nicotine dependence, other tobacco product, uncomplicated; F12.90 Cannabis use, unspecified, uncomplicated; Z88.5 Allergy status to narcotic agent; Z98.51 Tubal ligation status
CPT/HCPCS: 99285; 96374; 96375 ×2; 36415; 93005; 85379; 80053; 83690; 83735; 84484; 85025; 85610; 85730; 71046; 71275; J2270; J2405; J1170; Q9967

== ENCOUNTER → 2022-02-26 | Outpatient (CLI) | payer OTHER ==
--- NOTE | 2022-02-27 09:39 | MM ---
Reason for Exam: Screening (asymptomatic). Last mammogram was performed 1 year(s) and 6 month(s) ago. Patient History: Menarche at age 9. First Full-Term at age 19. Postmenopausal. Mother had breast cancer, age 28. Risk Values: Yoly 5 year model risk: 2.0%. NCI Lifetime model risk: 17.4%. Prior Study Comparison: 09/10/2020 Bilateral Screening Mammogram, [facility]. Tissue Density: The breast tissue is almost entirely fat. Findings: Analyzed By CAD. There is no suspicious group of microcalcifications or new suspicious mass in either breast. Overall Assessment: Negative, BI-RAD 1 Management: Screening Mammogram of both breasts in 1 year. A clinical breast exam by your physician is recommended on an annual basis and results should be correlated with mammographic findings. Electronically signed and approved by: Malcolm Carter DO
== END | disposition home or self-care (01) ==
LOC: RADMAMWWP 16:30
PROVIDERS: ATTEND Family Medicine
DX: Z12.31 Encounter for screening mammogram for malignant neoplasm of breast (principal); Z80.3 Family history of malignant neoplasm of breast; Z78.0 Asymptomatic menopausal state
CPT/HCPCS: 77067

== ENCOUNTER → 2022-06-23 | Outpatient (CLI) | payer OTHER ==
[2022-06-23 11:07] LABS: Glucose 2 Hour 102 mg/dL
== END | disposition home or self-care (01) ==
LOC: LABWHC1 07:28
PROVIDERS: ATTEND Family Medicine
DX: E66.01 Morbid (severe) obesity due to excess calories (principal)
CPT/HCPCS: 36415; 82947; 82950